=== PATIENT | female | born 1960 | race African-American/Black ===

== ENCOUNTER 2016-03-31 13:13 | Inpatient (IN) | payer MEDICARE, OTHER ==
[~2016-03-31] VITALS: Ht 167.6 cm; Wt 140.7 kg
[~2016-03-31 13:13] MED LIST: DULO60CA44 PO; FERR1GRA MC; GABA-529 PO; LISI-661 PO; MEMA5 PO; METF500T7 PO; MONT10TA21 PO; POTA8TAB4 PO; SIMV-260 PO
[2016-03-31 13:51] LABS: GLUCOSE,POINT OF CARE 131 MG/DL (70-110)
[2016-03-31 14:11] LABS: BASOPHILS % (AUTO) 0.3 % (0.0-2.0); EOSINOPHILS % (AUTO) 1.6 % (1.0-6.0); HEMOGLOBIN 13.5 g/dL (12.0-16.0); LYMPHOCYTES # (AUTO) 2.5 K/uL (1.0-4.8); LYMPHOCYTES % (AUTO) 26.4 % (22.0-44.0); MEAN CORPUSCULAR HEMOGLOBIN 30.6 pg (26.0-34.0); MEAN CORPUSCULAR HGB CONC 32.9 G/dL (31.0-37.0); MEAN CORPUSCULAR VOLUME 93 fL (80-100); MONOCYTES # (AUTO) 0.5 K/uL (0.1-1.0); MONOCYTES % (AUTO) 5.3 % (2.0-9.0); NEUTROPHILS # (AUTO) 6.4 K/uL (1.8-7.7); NEUTROPHILS % (AUTO) 66.4 % (40.0-70.0); PLATELET COUNT (AUTO) 280 K/uL (150-450); RED BLOOD CELL COUNT(AUTO) 4.42 MIL/uL (4.00-5.20); RED CELL DISTRIBUTION WIDTH 14.9 % (11.5-14.5); WHITE BLOOD COUNT (AUTO) 9.6 K/uL (4.5-11.0)
[2016-03-31 14:22] LABS: ANION GAP 12 mmol/L (8-16); CALCIUM, TOTAL 7.9 mg/dL (8.8-10.5); CARBON DIOXIDE 27 mmol/L (22-29); CHLORIDE 104 mmol/L (98-107); CREATININE 2.46 mg/dL (0.60-1.30); GLOMERULAR FILTR. RATE CALC 25 mL/min (>60); POTASSIUM 3.6 mmol/L (3.5-5.1); SODIUM SERUM 143 mmol/L (136-145); UREA NITROGEN, BLOOD 55 mg/dL (7-18)
[2016-03-31] MEDS ORDERED: ASPIRIN 81 MG CHEWABLE TABLET PO ONE (14:30)
[2016-03-31 14:39] LABS: B-TYPE NATRIURETIC PEPTIDE < 5 pg/mL (0-100)
[2016-03-31 14:47] LABS: ALANINE AMINOTRANSFERASE 28 U/L (12-78); ALBUMIN 3.3 g/dL (3.4-5.0); ASPARTATE AMINOTRANSFERASE 28 U/L (15-37); BILIRUBIN,TOTAL 0.2 mg/dL (0.1-1.0); CREATINE KINASE MB 0.9 ng/mL (0-5); CREATINE KINASE, TOTAL 486 U/L (26-192); TOTAL PROTEIN, SERUM 9.1 g/dL (6.4-8.2)
[2016-03-31] MEDS ORDERED: MORPHINE SULFATE 2 MG/ML SYRINGE IVP PRN (16:00)
[2016-03-31] MEDS ORDERED: ZOLPIDEM TARTRATE 5 MG TABLET PO PRN (16:00)
[2016-03-31] MEDS ORDERED: ACETAMINOPHEN 325 MG TABLET PO PRN ×2 (16:00)
[2016-03-31] MEDS ORDERED: ONDANSETRON HCL 4 MG/2 ML VIAL IVP PRN ×2 (16:00)
[2016-03-31] MEDS ORDERED: BISACODYL 10 MG RECTAL RECTAL SUPPOSITORY PR PRN (16:00)
[2016-03-31] MEDS ORDERED: HYDROCODONE/ACETAMINOPHEN 5-325 MG TABLET PO PRN (16:00)
[2016-03-31] MEDS ORDERED: 0.9% SODIUM CHLORIDE 10 ML SYRINGE IVP PRN (16:00)
[2016-03-31] MEDS ORDERED: MAGNESIUM HYDROXIDE SUSPENSION 30 ML UDCUP PO PRN (16:00)
[2016-03-31] MEDS: HEPARIN SODIUM,PORCINE 5,000 UNITS/ML VIAL SQ SCH (16:16)
[2016-03-31] MEDS: GABAPENTIN 100 MG CAPSULE PO SCH ×2 (16:18→20:45)
[2016-03-31 16:26] LABS: GLUCOSE COMMENT 1 Doctor Notified; GLUCOSE,POINT OF CARE 45 MG/DL (70-110)
[2016-03-31 16:41] LABS: GLUCOSE COMMENT 1 Juice/Food/D50 Given; GLUCOSE,POINT OF CARE 50 MG/DL (70-110)
[2016-03-31] MEDS ORDERED: DEXTROSE 50%-WATER 25 GM/50 ML SYRINGE IVP ONE ×2 (16:55→17:00)
[2016-03-31 18:02] VITALS: BP 117/53
[2016-03-31] MEDS: MetFORMIN HCL 500 MG ER TABLET PO SCH (19:07)
[2016-03-31 20:05] VITALS: BP 120/62
[2016-03-31] MEDS: SIMVASTATIN 20 MG TABLET PO SCH (20:45)
[2016-03-31] MEDS: FERROUS SULFATE 325 MG EC TABLET PO SCH (20:45)
[2016-03-31] MEDS: MEMANTINE HCL 5 MG TABLET PO SCH (20:45)
[2016-03-31] MEDS: DOCUSATE SODIUM 100 MG CAPSULE PO SCH (20:45)
[2016-03-31] MEDS ORDERED: INFLUENZA VIRUS VACCINE QVS 2016-17 (3YR+)/PF 60 MCG/0.5 ML SYRINGE IM ONE (22:00)
[2016-03-31] MEDS ORDERED: -PHARMACY VACCINE NOTE- MISC ONE ×2 (22:00)
[2016-04-01] VITALS (7 sets, daily range): BP systolic 94–116; BP diastolic 53–71
[2016-04-01] MEDS: HEPARIN SODIUM,PORCINE 5,000 UNITS/ML VIAL SQ SCH ×4 (00:42→23:47)
[2016-04-01] MEDS: DOCUSATE SODIUM 100 MG CAPSULE PO SCH ×2 (08:00→20:56)
[2016-04-01] MEDS: MetFORMIN HCL 500 MG ER TABLET PO SCH ×2 (08:00→19:49)
[2016-04-01] MEDS: GABAPENTIN 100 MG CAPSULE PO SCH ×3 (08:00→20:55)
[2016-04-01] MEDS: FERROUS SULFATE 325 MG EC TABLET PO SCH ×2 (08:00→20:56)
[2016-04-01] MEDS: DULoxetine HCL 60 MG CAPSULE PO SCH (08:00)
[2016-04-01] MEDS: MONTELUKAST SODIUM 10 MG TABLET PO SCH (08:01)
[2016-04-01] MEDS: PANTOPRAZOLE SODIUM 40 MG DR TABLET PO SCH (08:01)
[2016-04-01] MEDS: MEMANTINE HCL 5 MG TABLET PO SCH ×2 (08:01→20:56)
[2016-04-01] MEDS: LISINOPRIL 10 MG TABLET PO SCH (08:02)
[2016-04-01] MEDS: POTASSIUM CHLORIDE 8 MEQ ER TABLET PO SCH (08:02)
[2016-04-01 16:53] LABS: BASOPHILS % (AUTO) 0.4 % (0.0-2.0); EOSINOPHILS % (AUTO) 2.9 % (1.0-6.0); HEMATOCRIT 41.3 % (36-46); HEMOGLOBIN 13.4 g/dL (12.0-16.0); LYMPHOCYTES # (AUTO) 2.4 K/uL (1.0-4.8); LYMPHOCYTES % (AUTO) 29.3 % (22.0-44.0); MEAN CORPUSCULAR HEMOGLOBIN 30.8 pg (26.0-34.0); MEAN CORPUSCULAR HGB CONC 32.6 G/dL (31.0-37.0); MEAN CORPUSCULAR VOLUME 94 fL (80-100); MONOCYTES # (AUTO) 0.4 K/uL (0.1-1.0); MONOCYTES % (AUTO) 4.5 % (2.0-9.0); NEUTROPHILS # (AUTO) 5.2 K/uL (1.8-7.7); NEUTROPHILS % (AUTO) 62.9 % (40.0-70.0); PLATELET COUNT (AUTO) 281 K/uL (150-450); RED BLOOD CELL COUNT(AUTO) 4.37 MIL/uL (4.00-5.20); RED CELL DISTRIBUTION WIDTH 15.2 % (11.5-14.5); WHITE BLOOD COUNT (AUTO) 8.3 K/uL (4.5-11.0)
[2016-04-01 17:06] LABS: CALCIUM, TOTAL 7.8 mg/dL (8.8-10.5); CREATININE 1.63 mg/dL (0.60-1.30); POTASSIUM 4.4 mmol/L (3.5-5.1)
[2016-04-01 17:08] LABS: ALBUMIN 3.2 g/dL (3.4-5.0); BILIRUBIN,TOTAL 0.3 mg/dL (0.1-1.0)
[2016-04-01 17:17] LABS: RBC MORPHOLOGY COMMENT NORMAL RBC MORPH
[2016-04-01] MEDS: SIMVASTATIN 20 MG TABLET PO SCH (20:56)
[2016-04-02 00:15] VITALS: BP 109/48
[2016-04-02 04:57] VITALS: BP 113/57
[2016-04-02 06:15] LABS: BASOPHILS % (AUTO) 0.5 % (0.0-2.0); EOSINOPHILS % (AUTO) 3.8 % (1.0-6.0); HEMATOCRIT 38.7 % (36-46); HEMOGLOBIN 12.9 g/dL (12.0-16.0); LYMPHOCYTES # (AUTO) 1.9 K/uL (1.0-4.8); LYMPHOCYTES % (AUTO) 34.3 % (22.0-44.0); MEAN CORPUSCULAR HEMOGLOBIN 31.4 pg (26.0-34.0); MEAN CORPUSCULAR HGB CONC 33.2 G/dL (31.0-37.0); MEAN CORPUSCULAR VOLUME 94 fL (80-100); MONOCYTES # (AUTO) 0.3 K/uL (0.1-1.0); MONOCYTES % (AUTO) 5.9 % (2.0-9.0); NEUTROPHILS # (AUTO) 3.1 K/uL (1.8-7.7); NEUTROPHILS % (AUTO) 55.5 % (40.0-70.0); PLATELET COUNT (AUTO) 250 K/uL (150-450); RED CELL DISTRIBUTION WIDTH 14.9 % (11.5-14.5); WHITE BLOOD COUNT (AUTO) 5.5 K/uL (4.5-11.0)
[2016-04-02 06:33] LABS: ALBUMIN 2.8 g/dL (3.4-5.0); BILIRUBIN,TOTAL 0.2 mg/dL (0.1-1.0); CALCIUM, TOTAL 7.7 mg/dL (8.8-10.5); CREATININE 1.53 mg/dL (0.60-1.30); POTASSIUM 3.7 mmol/L (3.5-5.1); TOTAL PROTEIN, SERUM 8.1 g/dL (6.4-8.2)
[2016-04-02 07:23] VITALS: BP 115/58
[2016-04-02] MEDS: MetFORMIN HCL 500 MG ER TABLET PO SCH (08:21)
[2016-04-02] MEDS: HEPARIN SODIUM,PORCINE 5,000 UNITS/ML VIAL SQ SCH (08:21)
[2016-04-02] MEDS: DULoxetine HCL 60 MG CAPSULE PO SCH (08:21)
[2016-04-02] MEDS: MONTELUKAST SODIUM 10 MG TABLET PO SCH (08:21)
[2016-04-02] MEDS: DOCUSATE SODIUM 100 MG CAPSULE PO SCH (08:21)
[2016-04-02] MEDS: FERROUS SULFATE 325 MG EC TABLET PO SCH (08:22)
[2016-04-02] MEDS: POTASSIUM CHLORIDE 8 MEQ ER TABLET PO SCH (08:22)
[2016-04-02] MEDS: MEMANTINE HCL 5 MG TABLET PO SCH (08:22)
[2016-04-02] MEDS: PANTOPRAZOLE SODIUM 40 MG DR TABLET PO SCH (08:22)
[2016-04-02] MEDS: LISINOPRIL 10 MG TABLET PO SCH (08:22)
[2016-04-02] MEDS: GABAPENTIN 100 MG CAPSULE PO SCH (08:22)
[2016-04-02 11:30] VITALS: BP 118/59
== END 2016-04-02 13:10 | disposition home or self-care (01) | DRG 292 ==
LOC: EMS 13:16 → 5N 15:58
PROVIDERS: ADMIT Internal Medicine; ATTEND Internal Medicine
DX: I13.0 Hypertensive heart and chronic kidney disease with heart failure and stage 1 through stage 4 chronic kidney disease, or unspecified chronic kidney disease (principal); N17.9 Acute kidney failure, unspecified; E44.0 Moderate protein-calorie malnutrition; I69.354 Hemiplegia and hemiparesis following cerebral infarction affecting left non-dominant side; Z68.43 Body mass index [BMI] 50.0-59.9, adult; M94.0 Chondrocostal junction syndrome [Tietze]; E11.649 Type 2 diabetes mellitus with hypoglycemia without coma; I50.9 Heart failure, unspecified; E66.01 Morbid (severe) obesity due to excess calories; J45.909 Unspecified asthma, uncomplicated; E86.0 Dehydration; E78.5 Hyperlipidemia, unspecified; R29.6 Repeated falls; N18.9 Chronic kidney disease, unspecified; E11.22 Type 2 diabetes mellitus with diabetic chronic kidney disease; Z79.899 Other long term (current) drug therapy; Z90.710 Acquired absence of both cervix and uterus; Z82.49 Family history of ischemic heart disease and other diseases of the circulatory system
CPT/HCPCS: 74022; 76700; 82962; 90471; 93005; 93306; 96374; 99285; J1644

== ENCOUNTER 2016-04-16 23:28 | Inpatient (IN) | payer MEDICARE, OTHER ==
[~2016-04-16] VITALS: Ht 167.6 cm; Wt 138.8 kg
[2016-04-16] MEDS ORDERED: INSLAN SQ (23:47)
[2016-04-16] MEDS ORDERED: INSU100C6 SQ (23:47)
[2016-04-17] MEDS ORDERED: KETOROLAC TROMETHAMINE 30 MG/ML VIAL IVP ONE (00:15)
[2016-04-17 02:03] LABS: BASOPHILS % (AUTO) 0.3 % (0.0-2.0); EOSINOPHILS % (AUTO) 0.7 % (1.0-6.0); HEMATOCRIT 36.8 % (36-46); LYMPHOCYTES # (AUTO) 2.5 K/uL (1.0-4.8); LYMPHOCYTES % (AUTO) 18.6 % (22.0-44.0); MEAN CORPUSCULAR HEMOGLOBIN 29.9 pg (26.0-34.0); MEAN CORPUSCULAR HGB CONC 32.5 G/dL (31.0-37.0); MEAN CORPUSCULAR VOLUME 92 fL (80-100); MONOCYTES # (AUTO) 0.2 K/uL (0.1-1.0); MONOCYTES % (AUTO) 1.5 % (2.0-9.0); NEUTROPHILS # (AUTO) 10.7 K/uL (1.8-7.7); NEUTROPHILS % (AUTO) 78.9 % (40.0-70.0); PLATELET COUNT (AUTO) 288 K/uL (150-450); RED BLOOD CELL COUNT(AUTO) 3.99 MIL/uL (4.00-5.20); RED CELL DISTRIBUTION WIDTH 14.4 % (11.5-14.5); WHITE BLOOD COUNT (AUTO) 13.5 K/uL (4.5-11.0)
[2016-04-17 02:10] LABS: CALCIUM, TOTAL 8.1 mg/dL (8.8-10.5); CREATININE 1.61 mg/dL (0.60-1.30); POTASSIUM 4.2 mmol/L (3.5-5.1)
[2016-04-17 02:11] LABS: GLUCOSE,POINT OF CARE 52 MG/DL (70-110)
[2016-04-17] MEDS ORDERED: DEXTROSE 10%-WATER 1,000 ML IV ONE (02:15)
[2016-04-17 02:16] LABS: ALBUMIN 3.1 g/dL (3.4-5.0); BILIRUBIN,TOTAL 0.1 mg/dL (0.1-1.0); TOTAL PROTEIN, SERUM 8.8 g/dL (6.4-8.2)
[2016-04-17] MEDS ORDERED: ACETAMINOPHEN 325 MG TABLET PO PRN ×2 (03:00→17:00)
[2016-04-17] MEDS ORDERED: 0.9% SODIUM CHLORIDE 10 ML SYRINGE IVP PRN (03:00)
[2016-04-17] MEDS ORDERED: ONDANSETRON HCL 4 MG/2 ML VIAL IVP PRN ×2 (03:00→17:00)
[2016-04-17 03:29] VITALS: BP 132/64
[2016-04-17 07:04] VITALS: BP 130/69
[2016-04-17 11:25] VITALS: BP 112/49
[2016-04-17 15:17] VITALS: BP 105/47
[2016-04-17] MEDS ORDERED: MAGNESIUM HYDROXIDE SUSPENSION 30 ML UDCUP PO PRN (17:00)
[2016-04-17] MEDS ORDERED: IPRATROPIUM BROMIDE 0.5 MG/2.5 ML NEB SOLUTION NEB PRN (17:00)
[2016-04-17] MEDS ORDERED: ALBUTEROL SULFATE 2.5 MG/0.5 ML NEB SOLUTION NEB PRN (17:00)
[2016-04-17] MEDS ORDERED: ZOLPIDEM TARTRATE 5 MG TABLET PO PRN (17:00)
[2016-04-17] MEDS ORDERED: BISACODYL 10 MG RECTAL RECTAL SUPPOSITORY PR PRN (17:00)
[2016-04-17] MEDS ORDERED: DEXTROSE 50%-WATER 25 GM/50 ML SYRINGE IVP PRN (17:00)
[2016-04-17] MEDS ORDERED: FERR-89 PO (17:04)
[2016-04-17] MEDS: MetFORMIN HCL 500 MG ER TABLET PO SCH (17:39)
[2016-04-17] MEDS: INSULIN ASPART 100 UNITS/ML SQ PRN ×2 (17:41→22:01)
[2016-04-17 19:26] VITALS: BP 118/63
[2016-04-17] MEDS: MEMANTINE HCL 5 MG TABLET PO SCH (20:19)
[2016-04-17] MEDS: HEPARIN SODIUM,PORCINE 5,000 UNITS/ML VIAL SQ SCH (20:20)
[2016-04-17] MEDS: GABAPENTIN 100 MG CAPSULE PO SCH (20:20)
[2016-04-17 20:43] LABS: GLUCOSE,POINT OF CARE 175 MG/DL (70-110)
[2016-04-17 20:43] LABS: GLUCOSE,POINT OF CARE 59 MG/DL (70-110)
[2016-04-17 20:43] LABS: GLUCOSE,POINT OF CARE 202 MG/DL (70-110)
[2016-04-17 20:43] LABS: GLUCOSE,POINT OF CARE 139 MG/DL (70-110)
[2016-04-17] MEDS: OxyCODONE HCL/ACETAMINOPHEN 5-325 MG TABLET PO PRN (20:46)
[2016-04-17] MEDS ORDERED: SIMVASTATIN 20 MG TABLET PO SCH (21:00)
[2016-04-17 23:38] VITALS: BP 107/55
[2016-04-18 04:38] VITALS: BP 116/63
[2016-04-18 06:15] LABS: BASOPHILS # (AUTO) 0.04 K/uL (0.00-0.20); BASOPHILS % (AUTO) 0.6 % (0.0-2.0); EOSINOPHILS % (AUTO) 3.41 % (1.0-6.0); HEMATOCRIT 35.7 % (36-46); HEMOGLOBIN 11.8 g/dL (12.0-16.0); LYMPHOCYTES # (AUTO) 3.5 K/uL (1.0-4.8); LYMPHOCYTES % (AUTO) 58.6 % (22.0-44.0); MEAN CORPUSCULAR HEMOGLOBIN 30.6 pg (26.0-34.0); MEAN CORPUSCULAR VOLUME 93 fL (80-100); MONOCYTES # (AUTO) 0.3 K/uL (0.1-1.0); MONOCYTES % (AUTO) 5.4 % (2.0-9.0); NEUTROPHILS # (AUTO) 1.9 K/uL (1.8-7.7); NEUTROPHILS % (AUTO) 31.9 % (40.0-70.0); PLATELET COUNT (AUTO) 277 K/uL (150-450); RED BLOOD CELL COUNT(AUTO) 3.85 MIL/uL (4.00-5.20); RED CELL DISTRIBUTION WIDTH 14.7 % (11.5-14.5)
[2016-04-18 06:33] LABS: APPEARANCE,URINE CLEAR (CLEAR); GLUCOSE, URINE (UA) NEGATIVE (NEGATIVE); KETONES,URINE NEGATIVE (NEGATIVE); LEUKOCYTE ESTERASE ,URINE NEGATIVE (NEGATIVE); OCCULT BLOOD,URINE NEGATIVE (NEGATIVE); PH,URINE 5.5 (5.0-8.0); PROTEIN,URINE NEGATIVE (NEGATIVE)
[2016-04-18 06:39] LABS: ADD UA MICROSCOPIC NO
[2016-04-18 06:50] LABS: ALBUMIN 2.8 g/dL (3.4-5.0); BILIRUBIN,TOTAL 0.3 mg/dL (0.1-1.0); CALCIUM, TOTAL 7.7 mg/dL (8.8-10.5); CHOL/HDL RATIO 2.5 (3.9-5.7); CREATININE 1.18 mg/dL (0.60-1.30); MAGNESIUM 1.2 mg/dL (1.80-2.40); PHOSPHORUS 2.7 mg/dL (2.5-4.9); POTASSIUM 3.9 mmol/L (3.5-5.1); THYROID STIMULATING HORMONE 2.95 uIU/mL (0.36-3.74); TOTAL PROTEIN, SERUM 7.7 g/dL (6.4-8.2)
[2016-04-18 07:07] LABS: HEMOGLOBIN A1C 8.3 % (4.5-6.2)
[2016-04-18 07:22] VITALS: BP 121/64
[2016-04-18] MEDS: GABAPENTIN 100 MG CAPSULE PO SCH (08:14)
[2016-04-18] MEDS: MEMANTINE HCL 5 MG TABLET PO SCH (08:14)
[2016-04-18] MEDS: MetFORMIN HCL 500 MG ER TABLET PO SCH (08:14)
[2016-04-18] MEDS: HEPARIN SODIUM,PORCINE 5,000 UNITS/ML VIAL SQ SCH (08:17)
[2016-04-18] MEDS: OxyCODONE HCL/ACETAMINOPHEN 5-325 MG TABLET PO PRN (08:18)
[2016-04-18] MEDS ORDERED: MONTELUKAST SODIUM 10 MG TABLET PO SCH (09:00)
[2016-04-18] MEDS ORDERED: MAGNESIUM SULFATE 2 GM in DEXTROSE 5%-WATER 50 ML IV ONE (09:00)
[2016-04-18] MEDS ORDERED: DULoxetine HCL 60 MG CAPSULE PO SCH (09:00)
[2016-04-18] MEDS ORDERED: LISINOPRIL 10 MG TABLET PO SCH (09:00)
[2016-04-18 11:37] VITALS: BP 98/55
[2016-04-18] MEDS: INSULIN ASPART 100 UNITS/ML SQ PRN (12:03)
[2016-04-19 06:57] LABS: GLUCOSE,POINT OF CARE 133 MG/DL (70-110)
[2016-04-19 06:57] LABS: GLUCOSE,POINT OF CARE 83 MG/DL (70-110)
[2016-04-20 20:01] LABS: GLUCOSE COMMENT 1 Received Meds; GLUCOSE,POINT OF CARE 202 MG/DL (70-110)
== END 2016-04-18 13:40 | disposition home or self-care (01) | DRG 292 ==
LOC: EMS 23:29 → 5N 04-17 02:12
PROVIDERS: ADMIT Internal Medicine; ATTEND Internal Medicine
DX: I11.0 Hypertensive heart disease with heart failure (principal); N17.9 Acute kidney failure, unspecified; Z68.42 Body mass index [BMI] 45.0-49.9, adult; E87.1 Hypo-osmolality and hyponatremia; I50.9 Heart failure, unspecified; E09.649 Drug or chemical induced diabetes mellitus with hypoglycemia without coma; E11.40 Type 2 diabetes mellitus with diabetic neuropathy, unspecified; J45.909 Unspecified asthma, uncomplicated; R29.6 Repeated falls; F03.90 Unspecified dementia, unspecified severity, without behavioral disturbance, psychotic disturbance, mood disturbance, and anxiety; E66.01 Morbid (severe) obesity due to excess calories; I69.392 Facial weakness following cerebral infarction; E83.51 Hypocalcemia; T38.3X5A Adverse effect of insulin and oral hypoglycemic [antidiabetic] drugs, initial encounter; Z79.899 Other long term (current) drug therapy; Z79.4 Long term (current) use of insulin; Z90.710 Acquired absence of both cervix and uterus; Z98.890 Other specified postprocedural states; Z87.820 Personal history of traumatic brain injury; Y93.89 Activity, other specified; Y92.018 Other place in single-family (private) house as the place of occurrence of the external cause; Y99.8 Other external cause status
CPT/HCPCS: 70450; 82306; 82962; 83036; 83735; 84100; 84443; 87081; 96361; 96374; 99285; J1644; J1885; J3475; J7060

== ENCOUNTER 2016-09-22 08:31 | Inpatient (IN) | payer MEDICARE, OTHER ==
[~2016-09-22] VITALS: Ht 172.7 cm; Wt 147.7 kg
[~2016-09-22 08:31] MED LIST changes: +FERR-89 PO; -FERR1GRA MC; +INSLAN SQ; +INSU100C6 SQ
[2016-09-22 09:01] LABS: BASOPHILS % (AUTO) 0.5 % (0.0-2.0); EOSINOPHILS % (AUTO) 2.2 % (1.0-6.0); HEMATOCRIT 36.8 % (36-46); HEMOGLOBIN 12.3 g/dL (12.0-16.0); LYMPHOCYTES # (AUTO) 1.2 K/uL (1.0-4.8); LYMPHOCYTES % (AUTO) 30.2 % (22.0-44.0); MEAN CORPUSCULAR HEMOGLOBIN 31.1 pg (26.0-34.0); MEAN CORPUSCULAR HGB CONC 33.4 G/dL (31.0-37.0); MEAN CORPUSCULAR VOLUME 93 fL (80-100); MONOCYTES # (AUTO) 0.3 K/uL (0.1-1.0); MONOCYTES % (AUTO) 6.3 % (2.0-9.0); NEUTROPHILS # (AUTO) 2.5 K/uL (1.8-7.7); NEUTROPHILS % (AUTO) 60.8 % (40.0-70.0); PLATELET COUNT (AUTO) 332 K/uL (150-450); RED BLOOD CELL COUNT(AUTO) 3.96 MIL/uL (4.00-5.20); RED CELL DISTRIBUTION WIDTH 14.7 % (11.5-14.5); WHITE BLOOD COUNT (AUTO) 4.1 K/uL (4.5-11.0)
[2016-09-22 09:12] LABS: CALCIUM, TOTAL 8.9 mg/dL (8.8-10.5); CREATININE 1.22 mg/dL (0.60-1.30); POTASSIUM 3.1 mmol/L (3.5-5.1)
[2016-09-22 09:20] LABS: ALBUMIN 2.9 g/dL (3.4-5.0); BILIRUBIN,TOTAL 0.2 mg/dL (0.1-1.0); TOTAL PROTEIN, SERUM 8.7 g/dL (6.4-8.2)
[2016-09-22 10:37] LABS: GLUCOSE,POINT OF CARE 109 MG/DL (70-110)
[2016-09-22] MEDS ORDERED: DEXTROSE 50%-WATER 25 GM/50 ML SYRINGE IVP PRN (12:00)
[2016-09-22] MEDS ORDERED: MAGNESIUM HYDROXIDE SUSPENSION 30 ML UDCUP PO PRN (12:00)
[2016-09-22] MEDS ORDERED: ACETAMINOPHEN 325 MG TABLET PO PRN (12:00)
[2016-09-22] MEDS: ASPIRIN 81 MG CHEWABLE TABLET PO SCH (12:02)
[2016-09-22 12:30] VITALS: BP 104/47
[2016-09-22] MEDS: HEPARIN SODIUM,PORCINE 5,000 UNITS/ML VIAL SQ SCH ×2 (16:17→23:51)
[2016-09-22] MEDS ORDERED: POTASSIUM CHLORIDE 20 MEQ ER TABLET PO PRN (16:30)
[2016-09-22] MEDS ORDERED: POTASSIUM CHL 10 MEQ/WATER 50 ML IV PRN (16:30)
[2016-09-22 17:00] VITALS: BP 104/47
[2016-09-22 18:12] LABS: GLUCOSE,POINT OF CARE 104 MG/DL (70-110)
[2016-09-22 20:00] VITALS: BP 99/62
[2016-09-22 20:52] LABS: GLUCOSE,POINT OF CARE 72 MG/DL (70-110)
[2016-09-22] MEDS ORDERED: SIMVASTATIN 20 MG TABLET PO SCH (21:00)
[2016-09-22] MEDS: DOCUSATE SODIUM 100 MG CAPSULE PO SCH (21:27)
[2016-09-22 21:38] LABS: GLUCOSE,POINT OF CARE 120 MG/DL (70-110)
[2016-09-22 23:55] VITALS: BP 98/45
[2016-09-23 04:20] VITALS: BP 106/68
[2016-09-23 06:37] LABS: GLUCOSE,POINT OF CARE 158 MG/DL (70-110)
[2016-09-23] MEDS: INSULIN ASPART 100 UNITS/ML SQ PRN ×2 (06:39→12:05)
[2016-09-23 07:08] LABS: CHOL/HDL RATIO 3.4 (3.9-5.7)
[2016-09-23 07:40] VITALS: BP 96/52
[2016-09-23] MEDS: DOCUSATE SODIUM 100 MG CAPSULE PO SCH (08:44)
[2016-09-23] MEDS: ASPIRIN 81 MG CHEWABLE TABLET PO SCH (08:44)
[2016-09-23] MEDS: HEPARIN SODIUM,PORCINE 5,000 UNITS/ML VIAL SQ SCH (08:45)
[2016-09-23] MEDS ORDERED: PANTOPRAZOLE SODIUM 40 MG DR TABLET PO SCH (09:00)
[2016-09-23 11:30] VITALS: BP 102/72
[2016-09-23 14:27] LABS: GLUCOSE,POINT OF CARE 177 MG/DL (70-110)
== END 2016-09-23 14:00 | disposition home or self-care (01) | DRG 644 ==
LOC: EMS 08:33 → 4E 11:44
PROVIDERS: ADMIT Internal Medicine; ATTEND Internal Medicine
DX: E16.0 Drug-induced hypoglycemia without coma (principal); Z68.42 Body mass index [BMI] 45.0-49.9, adult; E66.01 Morbid (severe) obesity due to excess calories; E78.00 Pure hypercholesterolemia, unspecified; I11.0 Hypertensive heart disease with heart failure; I50.9 Heart failure, unspecified; J45.909 Unspecified asthma, uncomplicated; T38.3X5A Adverse effect of insulin and oral hypoglycemic [antidiabetic] drugs, initial encounter; Z79.4 Long term (current) use of insulin; Z86.73 Personal history of transient ischemic attack (TIA), and cerebral infarction without residual deficits; R29.6 Repeated falls; Z90.710 Acquired absence of both cervix and uterus
CPT/HCPCS: 82962; 83036; 84132; 99285; J1644

== ENCOUNTER 2018-06-27 15:35 | Inpatient (IN) | payer MEDICARE, OTHER ==
[~2018-06-27] VITALS: Ht 167.6 cm; Wt 125.8 kg
[~2018-06-27 15:35] MED LIST changes: +DULO20CA30 PO; -DULO60CA44 PO; -INSLAN SQ; +INSNOV SQ; -INSU100C6 SQ; +INSU100I26 SQ; -LISI-661 PO; -METF500T7 PO; +MULT-1203 PO; -POTA8TAB4 PO; +SLOWK8 PO
[2018-06-27] MEDS ORDERED: BISA5TAB12 PO (15:49)
[2018-06-27] MEDS ORDERED: FURO40 PO (15:49)
[2018-06-27 15:59] LABS: GLUCOSE,POINT OF CARE 408 MG/DL (70-110)
[2018-06-27 16:22] LABS: BASOPHILS % (AUTO) 0.6 % (0.0-2.0); EOSINOPHILS % (AUTO) 0.3 % (1.0-6.0); HEMATOCRIT 41.6 % (36-46); HEMOGLOBIN 13.7 g/dL (12.0-16.0); LYMPHOCYTES # (AUTO) 1.4 K/uL (1.0-4.8); LYMPHOCYTES % (AUTO) 12.3 % (22.0-44.0); MEAN CORPUSCULAR HEMOGLOBIN 31.2 pg (26.0-34.0); MEAN CORPUSCULAR VOLUME 95 fL (80-100); MONOCYTES # (AUTO) 0.7 K/uL (0.1-1.0); MONOCYTES % (AUTO) 5.7 % (2.0-9.0); NEUTROPHILS # (AUTO) 9.4 K/uL (1.8-7.7); NEUTROPHILS % (AUTO) 81.1 % (40.0-70.0); PLATELET COUNT (AUTO) 235 K/uL (150-450); RED CELL DISTRIBUTION WIDTH 14.9 % (11.5-14.5)
[2018-06-27 16:35] LABS: CALCIUM, TOTAL 9.1 mg/dL (8.8-10.5); CREATININE 2.34 mg/dL (0.60-1.30); POTASSIUM 3.3 mmol/L (3.5-5.1)
[2018-06-27 16:39] LABS: PROTHROMBIN TIME 10.8 SEC (9.4-11.6)
[2018-06-27 16:59] LABS: ALBUMIN 2.7 g/dL (3.4-5.0); BILIRUBIN,TOTAL 0.7 mg/dL (0.1-1.0); TOTAL PROTEIN, SERUM 9.9 g/dL (6.4-8.2)
[2018-06-27] MEDS ORDERED: SODIUM CHLORIDE 0.9% 1,000 ML IV ONE (17:15)
[2018-06-27 17:59] LABS: GLUCOSE,POINT OF CARE 351 MG/DL (70-110)
[2018-06-27 18:08] LABS: APPEARANCE,URINE TURBID (CLEAR); GLUCOSE, URINE (UA) 100 mg/dL (NEGATIVE); KETONES,URINE NEGATIVE (NEGATIVE); LEUKOCYTE ESTERASE ,URINE LARGE (NEGATIVE); NITRATE,URINE POSITIVE (NEGATIVE); OCCULT BLOOD,URINE LARGE (NEGATIVE); PH,URINE 5.5 (5.0-8.0); PROTEIN,URINE SEE CONFIRM (NEGATIVE)
[2018-06-27 18:10] LABS: BILIRUBIN,URINE PRELIM. POSITIVE (NEGATIVE)
[2018-06-27] MEDS ORDERED: ASPIRIN 325 MG TABLET PO ONE (18:15)
[2018-06-27] MEDS ORDERED: NITROGLYCERIN 2% (1 GM=INCH) PACKET TP ONE (18:15)
[2018-06-27] MEDS ORDERED: CefTRIAXone 1 GM/DEXTROSE 50 ML IV ONE (18:15)
[2018-06-27] MEDS ORDERED: ONDANSETRON HCL 4 MG/2 ML VIAL IVP PRN ×2 (18:30→22:15)
[2018-06-27] MEDS ORDERED: 0.9% SODIUM CHLORIDE 10 ML SYRINGE IVP PRN (18:30)
[2018-06-27] MEDS ORDERED: ACETAMINOPHEN 325 MG TABLET PO PRN (18:30)
[2018-06-27 18:31] LABS: SULFOSALICYLIC ACID,URINE 4+ (Negative)
[2018-06-27 18:32] LABS: BACTERIA,URINE Many /HPF (None Seen); SQUAMOUS EPITHELIAL CELL,UR Moderate /LPF (None Seen); WBC,URINE >100 /HPF (0-5)
[2018-06-27 18:39] LABS: GLUCOSE,POINT OF CARE 329 MG/DL (70-110)
[2018-06-27 20:24] VITALS: BP 117/67
[2018-06-27] MEDS ORDERED: DEXTROSE 50%-WATER 25 GM/50 ML SYG IVP PRN (22:15)
[2018-06-27] MEDS ORDERED: GLUCAGON,HUMAN RECOMBINANT 1 MG VIAL IM PRN (22:15)
[2018-06-27] MEDS ORDERED: INSULIN LISPRO 100 UNITS/ML SQ PRN ×2 (22:15)
[2018-06-27] MEDS ORDERED: ZOLPIDEM TARTRATE 5 MG TABLET PO PRN (22:15)
[2018-06-27] MEDS ORDERED: ALBUTEROL SULFATE 2.5 MG/0.5 ML NEB SOLUTION NEB PRN (22:15)
[2018-06-27] MEDS ORDERED: IPRATROPIUM BROMIDE 0.5 MG/2.5 ML NEB SOLUTION NEB PRN (22:15)
[2018-06-27] MEDS: FUROSEMIDE 40 MG TABLET PO SCH (22:33)
[2018-06-27] MEDS: DOCUSATE SODIUM 100 MG CAPSULE PO SCH (22:33)
[2018-06-27] MEDS: SIMVASTATIN 20 MG TABLET PO SCH (22:33)
[2018-06-27] MEDS: INSULIN LISPRO 100 UNITS/ML SQ PRN (22:42)
[2018-06-27] MEDS: MEMANTINE HCL 5 MG TABLET PO SCH (23:24)
[2018-06-27 23:53] VITALS: BP 121/62
[2018-06-27] MEDS: ACETAMINOPHEN 325 MG TABLET PO PRN (23:55)
[2018-06-28] MEDS: ALBUTEROL SULFATE 2.5 MG/0.5 ML NEB SOLUTION NEB SCH ×4 (01:15→20:34)
[2018-06-28] MEDS: IPRATROPIUM BROMIDE 0.5 MG/2.5 ML NEB SOLUTION NEB SCH ×4 (01:15→20:33)
[2018-06-28 04:42] VITALS: BP 102/51
[2018-06-28] MEDS: ACETAMINOPHEN 325 MG TABLET PO PRN ×2 (05:46→21:06)
[2018-06-28 06:06] LABS: BASOPHILS % (AUTO) 0.3 % (0.0-2.0); EOSINOPHILS % (AUTO) 0.5 % (1.0-6.0); HEMATOCRIT 37.1 % (36-46); HEMOGLOBIN 12.2 g/dL (12.0-16.0); LYMPHOCYTES # (AUTO) 1.2 K/uL (1.0-4.8); LYMPHOCYTES % (AUTO) 9.1 % (22.0-44.0); MEAN CORPUSCULAR HGB CONC 32.9 G/dL (31.0-37.0); MEAN CORPUSCULAR VOLUME 94 fL (80-100); MONOCYTES # (AUTO) 1.2 K/uL (0.1-1.0); MONOCYTES % (AUTO) 8.7 % (2.0-9.0); NEUTROPHILS # (AUTO) 10.8 K/uL (1.8-7.7); NEUTROPHILS % (AUTO) 81.4 % (40.0-70.0); PLATELET COUNT (AUTO) 207 K/uL (150-450); RED BLOOD CELL COUNT(AUTO) 3.94 MIL/uL (4.00-5.20); RED CELL DISTRIBUTION WIDTH 14.6 % (11.5-14.5)
[2018-06-28] MEDS: INSULIN LISPRO 100 UNITS/ML SQ PRN ×3 (06:17→21:56)
[2018-06-28] MEDS: INSULIN GLARGINE,HUM.REC.ANLOG 100 UNITS/ML SQ SCH ×2 (06:17→17:41)
[2018-06-28 06:25] LABS: ALBUMIN 2.4 g/dL (3.4-5.0); BILIRUBIN,TOTAL 0.7 mg/dL (0.1-1.0); CALCIUM, TOTAL 8.6 mg/dL (8.8-10.5); CREATININE 2.19 mg/dL (0.60-1.30); MAGNESIUM 1.4 mg/dL (1.80-2.40); TOTAL PROTEIN, SERUM 9.1 g/dL (6.4-8.2)
[2018-06-28 06:36] LABS: POTASSIUM 2.9 mmol/L (3.5-5.1)
[2018-06-28 07:19] VITALS: BP 98/56
[2018-06-28] MEDS ORDERED: ENOXAPARIN SODIUM 30 MG/0.3 ML PF SYRINGE SQ SCH (09:00)
[2018-06-28] MEDS: DOCUSATE SODIUM 100 MG CAPSULE PO SCH ×2 (09:10→21:00)
[2018-06-28] MEDS: FUROSEMIDE 40 MG TABLET PO SCH ×2 (09:11→21:05)
[2018-06-28] MEDS: GABAPENTIN 100 MG CAPSULE PO SCH (09:11)
[2018-06-28] MEDS: DULoxetine HCL 20 MG CAPSULE PO SCH (09:11)
[2018-06-28] MEDS: MEMANTINE HCL 5 MG TABLET PO SCH ×2 (09:11→21:06)
[2018-06-28] MEDS: PANTOPRAZOLE SODIUM 40 MG DR TABLET PO SCH (09:11)
[2018-06-28] MEDS: MONTELUKAST SODIUM 10 MG TABLET PO SCH (09:11)
[2018-06-28] MEDS: POTASSIUM CHL 10 MEQ/WATER 50 ML IV PRN ×3 (10:03→12:53)
[2018-06-28 11:12] VITALS: BP 117/58
[2018-06-28] MEDS ORDERED: MAGNESIUM OXIDE 400 MG TABLET PO ONE (11:30)
[2018-06-28] MEDS ORDERED: POTASSIUM CHLORIDE 20 MEQ ER TABLET PO ONE (11:30)
[2018-06-28] MEDS ORDERED: INSULIN LISPRO 100 UNITS/ML SQ ONE (11:45)
[2018-06-28] MEDS ORDERED: DEXTROSE 50%-WATER 25 GM/50 ML SYRINGE IVP PRN (11:45)
[2018-06-28 14:59] VITALS: BP 102/60
[2018-06-28] MEDS: HEPARIN SODIUM,PORCINE 5,000 UNITS/ML VIAL SQ SCH (15:41)
[2018-06-28] MEDS ORDERED: MAGNESIUM SULFATE 1 GM in DEXTROSE 5%-WATER 50 ML IV ONE (16:15)
[2018-06-28] MEDS: CefTRIAXone 1 GM/DEXTROSE 50 ML IV SCH (18:01)
[2018-06-28 20:28] LABS: GLUCOMETER DEV NAME(LOC) 5S.2; GLUCOSE,POINT OF CARE 309 MG/DL (70-110)
[2018-06-28 20:30] VITALS: BP 117/68
[2018-06-28] MEDS: SIMVASTATIN 20 MG TABLET PO SCH (21:06)
[2018-06-29 00:08] VITALS: BP 97/52
[2018-06-29] MEDS: HEPARIN SODIUM,PORCINE 5,000 UNITS/ML VIAL SQ SCH ×3 (00:54→16:34)
[2018-06-29] MEDS: POTASSIUM CHL 10 MEQ/WATER 50 ML IV PRN ×2 (01:33→06:49)
[2018-06-29] MEDS: ALBUTEROL SULFATE 2.5 MG/0.5 ML NEB SOLUTION NEB SCH ×4 (02:00→20:31)
[2018-06-29] MEDS: IPRATROPIUM BROMIDE 0.5 MG/2.5 ML NEB SOLUTION NEB SCH ×4 (02:00→20:31)
[2018-06-29] MEDS ORDERED: SODIUM CHLORIDE 0.9% 250 ML IV ONE (02:05)
[2018-06-29 05:00] LABS: GLUCOMETER DEV NAME(LOC) 5N.1; GLUCOSE,POINT OF CARE 322 MG/DL (70-110)
[2018-06-29 05:01] LABS: GLUCOMETER DEV NAME(LOC) 5N.1; GLUCOSE,POINT OF CARE 464 MG/DL (70-110)
[2018-06-29 05:01] LABS: GLUCOMETER DEV NAME(LOC) 5N.1; GLUCOSE,POINT OF CARE 372 MG/DL (70-110)
[2018-06-29 05:01] LABS: GLUCOMETER DEV NAME(LOC) 5N.1; GLUCOSE,POINT OF CARE 436 MG/DL (70-110)
[2018-06-29 05:17] VITALS: BP 99/61
[2018-06-29 06:17] LABS: BASOPHILS % (AUTO) 0.7 % (0.0-2.0); EOSINOPHILS % (AUTO) 2.4 % (1.0-6.0); HEMATOCRIT 36.1 % (36-46); LYMPHOCYTES # (AUTO) 1.6 K/uL (1.0-4.8); LYMPHOCYTES % (AUTO) 15.2 % (22.0-44.0); MEAN CORPUSCULAR HEMOGLOBIN 31.5 pg (26.0-34.0); MEAN CORPUSCULAR HGB CONC 33.3 G/dL (31.0-37.0); MEAN CORPUSCULAR VOLUME 95 fL (80-100); MONOCYTES # (AUTO) 1.1 K/uL (0.1-1.0); NEUTROPHILS # (AUTO) 7.6 K/uL (1.8-7.7); NEUTROPHILS % (AUTO) 71.7 % (40.0-70.0); PLATELET COUNT (AUTO) 201 K/uL (150-450); RED BLOOD CELL COUNT(AUTO) 3.82 MIL/uL (4.00-5.20); RED CELL DISTRIBUTION WIDTH 14.7 % (11.5-14.5)
[2018-06-29 06:31] LABS: CALCIUM, TOTAL 8.6 mg/dL (8.8-10.5); CREATININE 2.06 mg/dL (0.60-1.30); MAGNESIUM 1.5 mg/dL (1.80-2.40); PHOSPHORUS 2.9 mg/dL (2.5-4.9)
[2018-06-29] MEDS: INSULIN LISPRO 100 UNITS/ML SQ PRN ×4 (06:41→20:45)
[2018-06-29] MEDS: INSULIN GLARGINE,HUM.REC.ANLOG 100 UNITS/ML SQ SCH ×2 (06:42→17:54)
[2018-06-29 06:43] LABS: POTASSIUM 2.9 mmol/L (3.5-5.1)
[2018-06-29 06:51] LABS: CREATININE,URINE RANDOM 40.9 mg/dL (30.0-125.0)
[2018-06-29 07:11] VITALS: BP 98/54
[2018-06-29] MEDS ORDERED: POTASSIUM CHLORIDE 20 MEQ ER TABLET PO ONE (07:15)
[2018-06-29] MEDS ORDERED: MAGNESIUM SULFATE 2 GM in DEXTROSE 5%-WATER 50 ML IV ONE (08:15)
[2018-06-29] MEDS: MONTELUKAST SODIUM 10 MG TABLET PO SCH (08:55)
[2018-06-29] MEDS: DULoxetine HCL 20 MG CAPSULE PO SCH (08:55)
[2018-06-29] MEDS: ACETAMINOPHEN 325 MG TABLET PO PRN (08:55)
[2018-06-29] MEDS: GABAPENTIN 100 MG CAPSULE PO SCH (08:55)
[2018-06-29] MEDS: DOCUSATE SODIUM 100 MG CAPSULE PO SCH ×2 (08:55→20:33)
[2018-06-29] MEDS: MEMANTINE HCL 5 MG TABLET PO SCH ×2 (08:55→20:33)
[2018-06-29] MEDS: PANTOPRAZOLE SODIUM 40 MG DR TABLET PO SCH (08:55)
[2018-06-29 11:32] VITALS: BP_SYST 102; BP_SYST 58; BP_DIAS 58
[2018-06-29 14:05] LABS: GLUCOMETER DEV NAME(LOC) 5N.1; GLUCOSE,POINT OF CARE 228 MG/DL (70-110)
[2018-06-29 14:05] LABS: GLUCOMETER DEV NAME(LOC) 5S.2; GLUCOSE,POINT OF CARE 278 MG/DL (70-110)
[2018-06-29 14:53] LABS: CALCIUM, TOTAL 8.3 mg/dL (8.8-10.5); CREATININE 2.17 mg/dL (0.60-1.30); MAGNESIUM 2.2 mg/dL (1.80-2.40); PHOSPHORUS 2.6 mg/dL (2.5-4.9); POTASSIUM 3.3 mmol/L (3.5-5.1)
[2018-06-29 15:33] VITALS: BP 119/70
[2018-06-29] MEDS: CefTRIAXone 1 GM/DEXTROSE 50 ML IV SCH (17:54)
[2018-06-29 18:35] LABS: GLUCOMETER DEV NAME(LOC) 5S.2; GLUCOSE,POINT OF CARE 369 MG/DL (70-110)
[2018-06-29 19:23] VITALS: BP 106/58
[2018-06-29] MEDS: POTASSIUM CHLORIDE 20 MEQ ER TABLET PO PRN (19:24)
[2018-06-29] MEDS: SIMVASTATIN 20 MG TABLET PO SCH (20:33)
[2018-06-29 23:59] LABS: GLUCOMETER DEV NAME(LOC) 5S.2; GLUCOSE,POINT OF CARE 396 MG/DL (70-110)
[2018-06-30 00:13] VITALS: BP_SYST 112; BP_DIAS 112; BP_DIAS 58
[2018-06-30] MEDS: HEPARIN SODIUM,PORCINE 5,000 UNITS/ML VIAL SQ SCH ×3 (00:35→15:35)
[2018-06-30] MEDS: POTASSIUM CHLORIDE 20 MEQ ER TABLET PO PRN ×2 (00:36→08:23)
[2018-06-30] MEDS: IPRATROPIUM BROMIDE 0.5 MG/2.5 ML NEB SOLUTION NEB SCH ×4 (01:42→20:00)
[2018-06-30] MEDS: ALBUTEROL SULFATE 2.5 MG/0.5 ML NEB SOLUTION NEB SCH ×4 (01:42→20:00)
[2018-06-30 04:07] VITALS: BP 106/54
[2018-06-30 05:58] LABS: BASOPHILS % (AUTO) 0.5 % (0.0-2.0); EOSINOPHILS % (AUTO) 2.6 % (1.0-6.0); HEMATOCRIT 35.5 % (36-46); HEMOGLOBIN 11.7 g/dL (12.0-16.0); LYMPHOCYTES # (AUTO) 1.7 K/uL (1.0-4.8); LYMPHOCYTES % (AUTO) 20.9 % (22.0-44.0); MEAN CORPUSCULAR HEMOGLOBIN 31.1 pg (26.0-34.0); MEAN CORPUSCULAR HGB CONC 32.9 G/dL (31.0-37.0); MEAN CORPUSCULAR VOLUME 95 fL (80-100); MONOCYTES % (AUTO) 11.7 % (2.0-9.0); NEUTROPHILS # (AUTO) 5.4 K/uL (1.8-7.7); NEUTROPHILS % (AUTO) 64.3 % (40.0-70.0); PLATELET COUNT (AUTO) 219 K/uL (150-450); RED BLOOD CELL COUNT(AUTO) 3.75 MIL/uL (4.00-5.20); RED CELL DISTRIBUTION WIDTH 14.7 % (11.5-14.5)
[2018-06-30 06:29] LABS: CALCIUM, TOTAL 8.6 mg/dL (8.8-10.5); CREATININE 2.01 mg/dL (0.60-1.30); MAGNESIUM 2.3 mg/dL (1.80-2.40); PHOSPHORUS 2.8 mg/dL (2.5-4.9); POTASSIUM 3.3 mmol/L (3.5-5.1)
[2018-06-30] MEDS: INSULIN GLARGINE,HUM.REC.ANLOG 100 UNITS/ML SQ SCH ×2 (06:42→17:30)
[2018-06-30] MEDS: INSULIN LISPRO 100 UNITS/ML SQ PRN ×3 (06:43→17:29)
[2018-06-30 07:24] VITALS: BP 107/57
[2018-06-30] MEDS: GABAPENTIN 100 MG CAPSULE PO SCH (08:23)
[2018-06-30] MEDS: MEMANTINE HCL 5 MG TABLET PO SCH ×2 (08:23→20:00)
[2018-06-30] MEDS: MONTELUKAST SODIUM 10 MG TABLET PO SCH (08:23)
[2018-06-30] MEDS: DOCUSATE SODIUM 100 MG CAPSULE PO SCH ×2 (08:23→19:59)
[2018-06-30] MEDS: DULoxetine HCL 20 MG CAPSULE PO SCH (08:23)
[2018-06-30] MEDS: PANTOPRAZOLE SODIUM 40 MG DR TABLET PO SCH (08:23)
[2018-06-30 11:10] VITALS: BP 107/57
[2018-06-30 12:45] LABS: GLUCOMETER DEV NAME(LOC) 5S.2; GLUCOSE,POINT OF CARE 334 MG/DL (70-110)
[2018-06-30 12:45] LABS: GLUCOMETER DEV NAME(LOC) 5S.2; GLUCOSE,POINT OF CARE 271 MG/DL (70-110)
[2018-06-30 15:57] VITALS: BP 102/62
[2018-06-30] MEDS: CefTRIAXone 1 GM/DEXTROSE 50 ML IV SCH (17:27)
[2018-06-30] MEDS: SIMVASTATIN 20 MG TABLET PO SCH (20:00)
[2018-07-01 05:24] LABS: GLUCOMETER DEV NAME(LOC) 5S.2; GLUCOSE,POINT OF CARE 278 MG/DL (70-110)
== END 2018-06-30 20:20 | disposition home or self-care (01) | DRG 682 ==
LOC: EMS 15:37 → 5S 18:29
PROVIDERS: ADMIT Internal Medicine; ATTEND Internal Medicine
DX: N17.9 Acute kidney failure, unspecified (principal); J18.9 Pneumonia, unspecified organism; I50.23 Acute on chronic systolic (congestive) heart failure; N39.0 Urinary tract infection, site not specified; I69.351 Hemiplegia and hemiparesis following cerebral infarction affecting right dominant side; I13.0 Hypertensive heart and chronic kidney disease with heart failure and stage 1 through stage 4 chronic kidney disease, or unspecified chronic kidney disease; E11.65 Type 2 diabetes mellitus with hyperglycemia; I20.9 Angina pectoris, unspecified; J45.909 Unspecified asthma, uncomplicated; E78.00 Pure hypercholesterolemia, unspecified; E11.22 Type 2 diabetes mellitus with diabetic chronic kidney disease; E83.42 Hypomagnesemia; R29.6 Repeated falls; E87.6 Hypokalemia; N18.9 Chronic kidney disease, unspecified; Z79.4 Long term (current) use of insulin; Z79.899 Other long term (current) drug therapy; Z90.710 Acquired absence of both cervix and uterus
CPT/HCPCS: 76770; 82570; 83605; 83735; 84100; 84132; 84156; 87040; 87070; 87081; 87086; 87205; 93005; 93306; 93970; 94640; 96361; 96365; G0378; J0696; J1644; J1650; J1815; J3475; J3480; J7030; J7050; J7060

== ENCOUNTER 2022-09-13 17:41 | Inpatient (IN) | payer MEDICARE, OTHER ==
[~2022-09-13] VITALS: Ht 160 cm; Wt 119.3 kg
[~2022-09-13 17:41] MED LIST changes: +BISA-151 PO; -DULO20CA30 PO; +DULO20CA71 PO; -FERR-89 PO; +FERR325T27 PO; +FURO40 PO; +GABA-1216 PO; -GABA-529 PO; +MONT-35 PO; -MONT10TA21 PO; +POTA8TAB71 PO; -SLOWK8 PO
[2022-09-13] MEDS ORDERED: SODIUM CHLORIDE 0.9% 1,000 ML IV ONE (18:30)
[2022-09-13] MEDS ORDERED: MEMA5TAB42 PO (18:31)
[2022-09-13] MEDS ORDERED: SACU1TAB PO (18:31)
[2022-09-13] MEDS ORDERED: POTA8CAP20 PO (18:31)
[2022-09-13] MEDS ORDERED: ASPI-1444 PO (18:31)
[2022-09-13] MEDS ORDERED: MONT-40 PO (18:31)
[2022-09-13] MEDS ORDERED: EMPA25TA3 PO (18:31)
[2022-09-13] MEDS ORDERED: GABA-529 PO (18:31)
[2022-09-13] MEDS ORDERED: SIMV-46 PO (18:31)
[2022-09-13 20:17] LABS: BASOPHILS % (AUTO) 0.6 % (0.0-2.0); EOSINOPHILS % (AUTO) 1.7 % (1.0-6.0); HEMATOCRIT 46.8 % (36-46); HEMOGLOBIN 14.9 g/dL (12.0-16.0); LYMPHOCYTES # (AUTO) 2.7 K/uL (1.0-4.8); LYMPHOCYTES % (AUTO) 16.8 % (22.0-44.0); MEAN CORPUSCULAR HEMOGLOBIN 31.1 pg (26.0-34.0); MEAN CORPUSCULAR HGB CONC 31.8 G/dL (31.0-37.0); MEAN CORPUSCULAR VOLUME 98 fL (80-100); MONOCYTES # (AUTO) 0.6 K/uL (0.1-1.0); NEUTROPHILS # (AUTO) 12.2 K/uL (1.8-7.7); NEUTROPHILS % (AUTO) 76.9 % (40.0-70.0); PLATELET COUNT (AUTO) 141 K/uL (150-450); RED BLOOD CELL COUNT(AUTO) 4.79 MIL/uL (4.00-5.20); RED CELL DISTRIBUTION WIDTH 16.2 % (11.5-14.5)
[2022-09-13 20:25] LABS: CREATININE 1.83 mg/dL (0.60-1.30); POTASSIUM 3.3 mmol/L (3.5-5.1)
[2022-09-13 20:29] LABS: APPEARANCE,URINE CLEAR (CLEAR); BILIRUBIN,URINE NEGATIVE (NEGATIVE); GLUCOSE, URINE (UA) >=1000 mg/dL (NEGATIVE); KETONES,URINE NEGATIVE (NEGATIVE); LEUKOCYTE ESTERASE ,URINE NEGATIVE (NEGATIVE); NITRATE,URINE NEGATIVE (NEGATIVE); OCCULT BLOOD,URINE TRACE (NEGATIVE); PROTEIN,URINE 30-70 mg/dL (NEGATIVE); SPECIFIC GRAVITIY, URINE 1.028 (1.003-1.030); UROBILINOGEN,URINE <=1.0 mg/dL (<=1.0)
[2022-09-13] MEDS: CefTRIAXone 1 GM/DEXTROSE 50 ML IV ONE ×2 (20:30→20:45)
[2022-09-13 20:32] LABS: BILIRUBIN,TOTAL 0.4 mg/dL (0.1-1.0); TOTAL PROTEIN, SERUM 9.9 g/dL (6.4-8.2)
[2022-09-13 20:38] LABS: BACTERIA,URINE None Seen /HPF (None Seen); RBC,URINE None Seen /HPF (0-2); SQUAMOUS EPITHELIAL CELL,UR Rare /LPF (None Seen); WBC,URINE None Seen /HPF (0-5)
[2022-09-13] MEDS: AZITHROMYCIN 500 MG/NS 250 ML IV ONE (20:51)
[2022-09-13] MEDS ORDERED: ACETAMINOPHEN 325 MG TABLET PO PRN ×2 (21:15→21:30)
[2022-09-13] MEDS ORDERED: ONDANSETRON HCL 4 MG/2 ML VIAL IVP PRN ×2 (21:15→21:30)
[2022-09-13] MEDS ORDERED: ALBUTEROL SULFATE 2.5 MG/0.5 ML NEB SOLUTION NEB PRN (21:30)
[2022-09-13] MEDS ORDERED: MORPHINE SULFATE 2 MG/ML SYRINGE IVP PRN (21:30)
[2022-09-13] MEDS ORDERED: MAGNESIUM HYDROXIDE SUSPENSION 30 ML UDCUP PO PRN (21:30)
[2022-09-13] MEDS ORDERED: BISACODYL 10 MG RECTAL RECTAL SUPPOSITORY PR PRN (21:30)
[2022-09-13] MEDS ORDERED: DEXTROSE 50%-WATER 25 GM/50 ML SYRINGE IVP PRN (21:30)
[2022-09-13] MEDS ORDERED: IPRATROPIUM BROMIDE 0.5 MG/2.5 ML NEB SOLUTION NEB PRN (21:30)
[2022-09-14] VITALS (7 sets, daily range): BP systolic 83–125; BP diastolic 41–78; PULSE 65–79; RESP 18–22; TEMP 97.1–98.3
[2022-09-14] MEDS: AZITHROMYCIN 500 MG/NS 250 ML IV ONE (02:58)
[2022-09-14] MEDS: HEPARIN SODIUM,PORCINE 5,000 UNITS/ML VIAL SQ SCH ×3 (03:15→15:44)
[2022-09-14] MEDS: HYDROCODONE/ACETAMINOPHEN 5-325 MG TABLET PO PRN ×2 (03:18→20:05)
[2022-09-14] MEDS ORDERED: SODIUM CHLORIDE 0.9% 250 ML IV ONE (04:09)
[2022-09-14] MEDS: LEVOFLOXACIN 750 MG/D5% WATER 150 ML IV SCH (05:08)
[2022-09-14 07:08] LABS: BASOPHILS % (AUTO) 0.4 % (0.0-2.0); EOSINOPHILS % (AUTO) 2.2 % (1.0-6.0); HEMATOCRIT 42.5 % (36-46); HEMOGLOBIN 13.5 g/dL (12.0-16.0); LYMPHOCYTES # (AUTO) 2.3 K/uL (1.0-4.8); LYMPHOCYTES % (AUTO) 18.2 % (22.0-44.0); MEAN CORPUSCULAR HEMOGLOBIN 30.7 pg (26.0-34.0); MEAN CORPUSCULAR HGB CONC 31.7 G/dL (31.0-37.0); MEAN CORPUSCULAR VOLUME 97 fL (80-100); MONOCYTES # (AUTO) 0.6 K/uL (0.1-1.0); MONOCYTES % (AUTO) 4.7 % (2.0-9.0); NEUTROPHILS # (AUTO) 9.5 K/uL (1.8-7.7); NEUTROPHILS % (AUTO) 74.5 % (40.0-70.0); PLATELET COUNT (AUTO) 152 K/uL (150-450); RED BLOOD CELL COUNT(AUTO) 4.39 MIL/uL (4.00-5.20); RED CELL DISTRIBUTION WIDTH 15.8 % (11.5-14.5)
[2022-09-14 07:15] LABS: CALCIUM, TOTAL 8.4 mg/dL (8.8-10.5); CREATININE 1.8 mg/dL (0.60-1.30); POTASSIUM 3.5 mmol/L (3.5-5.1)
[2022-09-14] MEDS: FERROUS SULFATE 325 MG EC TABLET PO SCH (08:45)
[2022-09-14] MEDS: DOCUSATE SODIUM 100 MG CAPSULE PO SCH ×2 (08:47→20:05)
[2022-09-14] MEDS: ASPIRIN 81 MG DR TABLET PO SCH (08:48)
[2022-09-14] MEDS: EMPAGLIFLOZIN 25 MG TABLET PO SCH (08:49)
[2022-09-14] MEDS: MEMANTINE HCL 5 MG TABLET PO SCH ×2 (08:50→21:49)
[2022-09-14] MEDS: GABAPENTIN 100 MG CAPSULE PO SCH ×3 (08:50→20:04)
[2022-09-14] MEDS: PANTOPRAZOLE SODIUM 40 MG DR TABLET PO SCH (08:50)
[2022-09-14] MEDS: MONTELUKAST SODIUM 10 MG TABLET PO SCH (08:51)
[2022-09-14] MEDS ORDERED: SACUBITRIL/VALSARTAN 24-26 MG TABLET PO SCH (09:00)
[2022-09-14 09:52] LABS: GLUCOMETER DEV NAME(LOC) 4E.2
[2022-09-14 09:52] LABS: GLUCOMETER DEV NAME(LOC) 6N.1
[2022-09-14] MEDS ORDERED: DEXTROSE 5%-WATER 250 ML IV ONE (10:15)
[2022-09-14] MEDS ORDERED: DEXTROSE 5%-WATER 1,000 ML IV ONE (10:15)
[2022-09-14] MEDS: WATER FOR INJECTION,STERILE 500 ML in DEXTROSE 5%-WATER 500 ML IV SCH (14:31)
[2022-09-14] MEDS: INSULIN LISPRO 100 UNITS/ML SQ PRN ×2 (18:50→21:02)
[2022-09-14] MEDS: SIMVASTATIN 40 MG TABLET PO SCH (20:05)
[2022-09-14] MEDS: ZOLPIDEM TARTRATE 5 MG TABLET PO PRN (21:49)
[2022-09-14 22:16] LABS: GLUCOMETER DEV NAME(LOC) 5S.2C
[2022-09-14 23:50] LABS: GLUCOMETER DEV NAME(LOC) 5N.2C
[2022-09-15] MEDS: HEPARIN SODIUM,PORCINE 5,000 UNITS/ML VIAL SQ SCH ×4 (00:08→23:23)
[2022-09-15 00:15] VITALS: BP 113/64; PULSE 64; RESP 20; TEMP 98.1
[2022-09-15] MEDS: WATER FOR INJECTION,STERILE 500 ML in DEXTROSE 5%-WATER 500 ML IV SCH (02:17)
[2022-09-15] MEDS: LEVOFLOXACIN 750 MG/D5% WATER 150 ML IV SCH (03:58)
[2022-09-15 04:55] VITALS: BP 94/54; PULSE 59; RESP 20; TEMP 98.2
[2022-09-15] MEDS: INSULIN LISPRO 100 UNITS/ML SQ PRN ×4 (06:13→20:24)
[2022-09-15 06:53] LABS: BASOPHILS % (AUTO) 0.6 % (0.0-2.0); EOSINOPHILS % (AUTO) 3.4 % (1.0-6.0); HEMATOCRIT 38.6 % (36-46); HEMOGLOBIN 12.4 g/dL (12.0-16.0); LYMPHOCYTES # (AUTO) 2.4 K/uL (1.0-4.8); LYMPHOCYTES % (AUTO) 34.1 % (22.0-44.0); MEAN CORPUSCULAR HGB CONC 32.1 G/dL (31.0-37.0); MEAN CORPUSCULAR VOLUME 97 fL (80-100); MONOCYTES # (AUTO) 0.4 K/uL (0.1-1.0); MONOCYTES % (AUTO) 6.3 % (2.0-9.0); NEUTROPHILS % (AUTO) 55.6 % (40.0-70.0); PLATELET COUNT (AUTO) 132 K/uL (150-450); RED BLOOD CELL COUNT(AUTO) 3.99 MIL/uL (4.00-5.20); RED CELL DISTRIBUTION WIDTH 15.6 % (11.5-14.5)
[2022-09-15 07:07] LABS: CALCIUM, TOTAL 8.1 mg/dL (8.8-10.5); CREATININE 1.64 mg/dL (0.60-1.30); MAGNESIUM 2.5 mg/dL (1.80-2.40); PHOSPHORUS 3.8 mg/dL (2.5-4.9); POTASSIUM 3.9 mmol/L (3.5-5.1)
[2022-09-15 08:10] VITALS: BP 94/48; PULSE 61; RESP 19; TEMP 97.6
[2022-09-15] MEDS: HYDROCODONE/ACETAMINOPHEN 5-325 MG TABLET PO PRN ×3 (08:46→18:37)
[2022-09-15] MEDS: MONTELUKAST SODIUM 10 MG TABLET PO SCH (08:46)
[2022-09-15] MEDS: ASPIRIN 81 MG DR TABLET PO SCH (08:46)
[2022-09-15] MEDS: PANTOPRAZOLE SODIUM 40 MG DR TABLET PO SCH (08:46)
[2022-09-15] MEDS: DOCUSATE SODIUM 100 MG CAPSULE PO SCH ×2 (08:46→20:23)
[2022-09-15] MEDS: GABAPENTIN 100 MG CAPSULE PO SCH ×2 (08:46→20:23)
[2022-09-15] MEDS: FERROUS SULFATE 325 MG EC TABLET PO SCH (08:47)
[2022-09-15] MEDS: EMPAGLIFLOZIN 25 MG TABLET PO SCH (08:47)
[2022-09-15] MEDS: MEMANTINE HCL 5 MG TABLET PO SCH ×2 (08:47→20:23)
[2022-09-15 09:01] LABS: GLUCOMETER DEV NAME(LOC) 5S.2C
[2022-09-15 11:56] VITALS: BP 93/77; PULSE 63; RESP 18; TEMP 98
[2022-09-15 11:56] LABS: GLUCOMETER DEV NAME(LOC) 4E.2
[2022-09-15 12:56] LABS: GLUCOMETER DEV NAME(LOC) 5N.1C
[2022-09-15] MEDS: MIDODRINE HCL 5 MG TABLET PO SCH ×2 (17:55→20:23)
[2022-09-15 18:28] LABS: GLUCOMETER DEV NAME(LOC) 5N.1C
[2022-09-15 20:00] VITALS: BP 98/63; PULSE 69; RESP 20; TEMP 98.7
[2022-09-15] MEDS: SIMVASTATIN 40 MG TABLET PO SCH (20:23)
[2022-09-15] MEDS: ZOLPIDEM TARTRATE 5 MG TABLET PO PRN (21:50)
[2022-09-16 05:04] VITALS: BP 102/48; PULSE 63; RESP 20; TEMP 98.3
[2022-09-16] MEDS: LEVOFLOXACIN 750 MG/D5% WATER 150 ML IV SCH (05:44)
[2022-09-16 06:09] LABS: GLUCOMETER DEV NAME(LOC) 5N.2C
[2022-09-16] MEDS: INSULIN LISPRO 100 UNITS/ML SQ PRN ×3 (06:30→16:39)
[2022-09-16 06:42] LABS: BASOPHILS % (AUTO) 0.4 % (0.0-2.0); EOSINOPHILS % (AUTO) 2.9 % (1.0-6.0); HEMATOCRIT 39.5 % (36-46); HEMOGLOBIN 12.6 g/dL (12.0-16.0); LYMPHOCYTES # (AUTO) 1.6 K/uL (1.0-4.8); LYMPHOCYTES % (AUTO) 24.4 % (22.0-44.0); MEAN CORPUSCULAR HEMOGLOBIN 30.3 pg (26.0-34.0); MEAN CORPUSCULAR HGB CONC 31.9 G/dL (31.0-37.0); MEAN CORPUSCULAR VOLUME 95 fL (80-100); MONOCYTES # (AUTO) 0.4 K/uL (0.1-1.0); MONOCYTES % (AUTO) 6.6 % (2.0-9.0); NEUTROPHILS # (AUTO) 4.2 K/uL (1.8-7.7); NEUTROPHILS % (AUTO) 65.7 % (40.0-70.0); PLATELET COUNT (AUTO) 171 K/uL (150-450); RED BLOOD CELL COUNT(AUTO) 4.16 MIL/uL (4.00-5.20); RED CELL DISTRIBUTION WIDTH 15.1 % (11.5-14.5)
[2022-09-16 06:49] LABS: CALCIUM, TOTAL 8.6 mg/dL (8.8-10.5); CREATININE 1.58 mg/dL (0.60-1.30); POTASSIUM 3.5 mmol/L (3.5-5.1)
[2022-09-16 07:39] VITALS: BP 102/57; PULSE 69; RESP 16; TEMP 98.7
[2022-09-16] MEDS: HEPARIN SODIUM,PORCINE 5,000 UNITS/ML VIAL SQ SCH ×2 (07:59→16:35)
[2022-09-16] MEDS: MEMANTINE HCL 5 MG TABLET PO SCH (07:59)
[2022-09-16] MEDS: FERROUS SULFATE 325 MG EC TABLET PO SCH (07:59)
[2022-09-16] MEDS: MIDODRINE HCL 5 MG TABLET PO SCH ×2 (07:59→16:35)
[2022-09-16] MEDS: HYDROCODONE/ACETAMINOPHEN 5-325 MG TABLET PO PRN ×3 (07:59→16:35)
[2022-09-16] MEDS: GABAPENTIN 100 MG CAPSULE PO SCH (07:59)
[2022-09-16] MEDS: EMPAGLIFLOZIN 25 MG TABLET PO SCH (07:59)
[2022-09-16] MEDS: MONTELUKAST SODIUM 10 MG TABLET PO SCH (07:59)
[2022-09-16] MEDS: DOCUSATE SODIUM 100 MG CAPSULE PO SCH (08:00)
[2022-09-16] MEDS: ASPIRIN 81 MG DR TABLET PO SCH (08:00)
[2022-09-16] MEDS: PANTOPRAZOLE SODIUM 40 MG DR TABLET PO SCH (08:00)
[2022-09-16] MEDS ORDERED: LEVO750T68 PO (09:29)
[2022-09-16] MEDS ORDERED: INSU100I26 SQ (09:29)
[2022-09-16] MEDS ORDERED: MIDO5TAB29 PO (09:29)
[2022-09-16 12:00] VITALS: BP 129/70; PULSE 75; RESP 18; TEMP 98.2
[2022-09-16 12:12] LABS: GLUCOMETER DEV NAME(LOC) 5S.1B
[2022-09-16 15:44] VITALS: BP 104/58; PULSE 71; RESP 18; TEMP 98.1
[2022-09-16 20:57] LABS: GLUCOMETER DEV NAME(LOC) 5S.1B
[2022-09-16 20:57] LABS: GLUCOMETER DEV NAME(LOC) 5S.1B
== END 2022-09-16 18:10 | disposition home health service (06) | DRG 871 ==
LOC: EMS 17:42 → 6S 21:55 → 5S 09-14 16:59
PROVIDERS: ADMIT Internal Medicine; ATTEND Internal Medicine
DX: A41.9 Sepsis, unspecified organism (principal); J18.1 Lobar pneumonia, unspecified organism; E87.0 Hyperosmolality and hypernatremia; N17.9 Acute kidney failure, unspecified; I13.0 Hypertensive heart and chronic kidney disease with heart failure and stage 1 through stage 4 chronic kidney disease, or unspecified chronic kidney disease; I50.22 Chronic systolic (congestive) heart failure; I69.354 Hemiplegia and hemiparesis following cerebral infarction affecting left non-dominant side; E87.6 Hypokalemia; E11.65 Type 2 diabetes mellitus with hyperglycemia; J45.909 Unspecified asthma, uncomplicated; I95.1 Orthostatic hypotension; N18.32 Chronic kidney disease, stage 3b; D35.00 Benign neoplasm of unspecified adrenal gland; E11.22 Type 2 diabetes mellitus with diabetic chronic kidney disease; E11.40 Type 2 diabetes mellitus with diabetic neuropathy, unspecified; E78.00 Pure hypercholesterolemia, unspecified; F01.50 Vascular dementia, unspecified severity, without behavioral disturbance, psychotic disturbance, mood disturbance, and anxiety; Z79.82 Long term (current) use of aspirin; Z90.710 Acquired absence of both cervix and uterus; Z91.119 Patient's noncompliance with dietary regimen due to unspecified reason; Z79.899 Other long term (current) drug therapy; Z79.4 Long term (current) use of insulin
CPT/HCPCS: 51701; 71045; 74176; 76770; 80048; 80053; 81001; 82962; 83690; 83735; 84100; 84484; 85025; 87040; 93005; 97110; 97116; 97162; 97166; 97168; 97530; 97535; 99285; J0456; J0696; J1644; J1956; J7050; J7060; Q9967; 36415-L1; 36415-TC

== ENCOUNTER 2024-08-07 07:45 | Emergency (ER) | payer MEDICARE, MEDICAID ==
[~2024-08-07] VITALS: Ht 167.6 cm; Wt 113.6 kg
[~2024-08-07 07:45] MED LIST changes: +ASPI-1444 PO; -BISA-151 PO; -DULO20CA71 PO; +EMPA25TA3 PO; -FURO40 PO; -GABA-1216 PO; +GABA-529 PO; -INSNOV SQ; -MEMA5 PO; +MEMA5TAB16 PO; -MONT-35 PO; +MONT-40 PO; -POTA8TAB71 PO; -SIMV-260 PO; +SIMV-46 PO
[2024-08-07 08:11] VITALS: TEMP 98.2
[2024-08-07 08:33] LABS: BASOPHILS % (AUTO) 0.8 % (0.0-2.0); EOSINOPHILS % (AUTO) 2.1 % (1.0-6.0); HEMATOCRIT 38.2 % (36-46); HEMOGLOBIN 12.7 g/dL (12.0-16.0); LYMPHOCYTES # (AUTO) 1.8 K/uL (1.0-4.8); LYMPHOCYTES % (AUTO) 38.5 % (22.0-44.0); MEAN CORPUSCULAR HEMOGLOBIN 31.2 pg (26.0-34.0); MEAN CORPUSCULAR HGB CONC 33.2 G/dL (31.0-37.0); MEAN CORPUSCULAR VOLUME 94 fL (80-100); MONOCYTES # (AUTO) 0.4 K/uL (0.1-1.0); MONOCYTES % (AUTO) 7.5 % (2.0-9.0); NEUTROPHILS # (AUTO) 2.4 K/uL (1.8-7.7); NEUTROPHILS % (AUTO) 51.1 % (40.0-70.0); PLATELET COUNT (AUTO) 217 K/uL (150-450); RED BLOOD CELL COUNT(AUTO) 4.07 MIL/uL (4.00-5.20); RED CELL DISTRIBUTION WIDTH 14.7 % (11.5-14.5); WHITE BLOOD COUNT (AUTO) 4.7 K/uL (4.5-11.0)
[2024-08-07 08:41] LABS: ANION GAP 10 mmol/L (8-16); CALCIUM, TOTAL 8.2 mg/dL (8.8-10.5); CARBON DIOXIDE 28 mmol/L (22-29); CHLORIDE 104 mmol/L (98-107); CREATININE 1.29 mg/dL (0.60-1.30); GLOMERULAR FILTR. RATE CALC 50 mL/min (>60); GLUCOSE,RANDOM 373 mg/dL (70-110); POTASSIUM 3.5 mmol/L (3.5-5.1); SODIUM SERUM 142 mmol/L (136-145); UREA NITROGEN, BLOOD 11 mg/dL (7-18)
[2024-08-07 08:49] LABS: TROPONIN I-HIGH SENSITIVITY 9 ng/L (<51)
[2024-08-07 10:16] LABS: APPEARANCE,URINE CLEAR (CLEAR); BILIRUBIN,URINE NEGATIVE (NEGATIVE); COLOR,URINE LIGHT YELLOW (YELLOW); GLUCOSE, URINE (UA) >=1000 mg/dL (NEGATIVE); KETONES,URINE NEGATIVE (NEGATIVE); LEUKOCYTE ESTERASE ,URINE NEGATIVE (NEGATIVE); NITRATE,URINE NEGATIVE (NEGATIVE); OCCULT BLOOD,URINE NEGATIVE (NEGATIVE); PH,URINE 5.5 (5.0-8.0); PROTEIN,URINE NEGATIVE (NEGATIVE); SPECIFIC GRAVITIY, URINE 1.024 (1.003-1.030); UROBILINOGEN,URINE <=1.0 mg/dL (<=1.0)
[2024-08-07 10:32] LABS: BACTERIA,URINE None Seen /HPF (None Seen); RBC,URINE None Seen /HPF (0-2); SQUAMOUS EPITHELIAL CELL,UR Few /LPF (None Seen); WBC,URINE None Seen /HPF (0-5)
[2024-08-07] MEDS: INSULIN GLARGINE,HUM.REC.ANLOG 100 UNITS/ML SQ ONE (11:03)
[2024-08-07 11:10] LABS: GLUCOMETER DEV NAME(LOC) ERT.7; GLUCOSE,POINT OF CARE 329 MG/DL (70-110)
[2024-08-07 11:15] VITALS: BP 117/58; PULSE 60; RESP 12; O2SAT 99
== END 2024-08-07 11:16 | disposition home or self-care (01) ==
LOC: EMS 08:08
DX: E11.65 Type 2 diabetes mellitus with hyperglycemia (principal); I11.0 Hypertensive heart disease with heart failure; I50.9 Heart failure, unspecified; R11.2 Nausea with vomiting, unspecified; E78.00 Pure hypercholesterolemia, unspecified; J45.909 Unspecified asthma, uncomplicated; F03.90 Unspecified dementia, unspecified severity, without behavioral disturbance, psychotic disturbance, mood disturbance, and anxiety; Z79.4 Long term (current) use of insulin; Z79.82 Long term (current) use of aspirin; Z86.73 Personal history of transient ischemic attack (TIA), and cerebral infarction without residual deficits; Z90.710 Acquired absence of both cervix and uterus; Z79.899 Other long term (current) drug therapy
CPT/HCPCS: 99285; 71045; 80048; 81001; 82962; 83880; 84484; 85025; 36415; 93005; J1815

== ENCOUNTER 2024-08-09 07:22 | Inpatient (IN) | payer MEDICARE, MEDICAID ==
[~2024-08-09] VITALS: Ht 162.6 cm; Wt 128.5 kg
[2024-08-09] MEDS ORDERED: INSU3INS3 SQ (07:37)
[2024-08-09] MEDS ORDERED: DULA3PEN SQ (07:37)
[2024-08-09] MEDS ORDERED: FURO40TA5 PO (07:37)
[2024-08-09] MEDS ORDERED: [UNRECOGNIZED DRUG - CODE] (07:37)
[2024-08-09] MEDS ORDERED: POTA-204 PO (07:37)
[2024-08-09 07:56] LABS: GLUCOMETER DEV NAME(LOC) ER.7; GLUCOSE,POINT OF CARE 338 MG/DL (70-110)
[2024-08-09] MEDS ORDERED: IOHEXOL 350 MG/ML 100 ML VIAL ONE (08:01)
[2024-08-09] MEDS ORDERED: SODIUM CHLORIDE 0.9% 100 ML ONE (08:01)
[2024-08-09 08:56] LABS: BASOPHILS % (AUTO) 0.7 % (0.0-2.0); EOSINOPHILS % (AUTO) 1.6 % (1.0-6.0); HEMATOCRIT 38.2 % (36-46); HEMOGLOBIN 12.4 g/dL (12.0-16.0); LYMPHOCYTES # (AUTO) 1.9 K/uL (1.0-4.8); LYMPHOCYTES % (AUTO) 34.7 % (22.0-44.0); MEAN CORPUSCULAR HGB CONC 32.4 G/dL (31.0-37.0); MEAN CORPUSCULAR VOLUME 96 fL (80-100); MONOCYTES # (AUTO) 0.4 K/uL (0.1-1.0); MONOCYTES % (AUTO) 7.2 % (2.0-9.0); NEUTROPHILS # (AUTO) 3.1 K/uL (1.8-7.7); NEUTROPHILS % (AUTO) 55.8 % (40.0-70.0); PLATELET COUNT (AUTO) 226 K/uL (150-450); RED BLOOD CELL COUNT(AUTO) 3.98 MIL/uL (4.00-5.20); WHITE BLOOD COUNT (AUTO) 5.5 K/uL (4.5-11.0)
[2024-08-09 09:05] LABS: CALCIUM, TOTAL 8.2 mg/dL (8.8-10.5); CREATININE 1.19 mg/dL (0.60-1.30); POTASSIUM 3.5 mmol/L (3.5-5.1)
[2024-08-09 09:11] LABS: ALBUMIN 2.5 g/dL (3.4-5.0); BILIRUBIN,DIRECT 0.1 mg/dL (0.00-0.20); BILIRUBIN,TOTAL 0.3 mg/dL (0.1-1.0); TOTAL PROTEIN, SERUM 7.3 g/dL (6.4-8.2)
[2024-08-09 09:13] LABS: TROPONIN I-HIGH SENSITIVITY 10 ng/L (<51)
[2024-08-09] MEDS: FAMOTIDINE 20 MG/2 ML VIAL IVP ONE (09:17)
[2024-08-09] MEDS: ACETAMINOPHEN 500 MG TABLET PO ONE (09:17)
[2024-08-09] MEDS: ONDANSETRON HCL 4 MG/2 ML VIAL IVP ONE (09:18)
[2024-08-09] MEDS: FUROSEMIDE 20 MG/2 ML VIAL IVP ONE (09:18)
[2024-08-09 09:25] LABS: COVID AG,FIA SOURCE NASAL SWAB
[2024-08-09 09:54] LABS: INFLUENZA TYPE A NEGATIVE FOR TYPE A (NEGATIVE); INFLUENZA TYPE B NEGATIVE FOR TYPE B (NEGATIVE); SARS-COV2 (COVID) ANTIGEN,FIA Negative (Negative)
[2024-08-09] MEDS ORDERED: ONDANSETRON HCL 4 MG/2 ML VIAL IVP PRN (11:00)
[2024-08-09] MEDS ORDERED: DEXTROSE 50%-WATER 25 GM/50 ML SYRINGE IVP PRN (11:00)
[2024-08-09] MEDS ORDERED: ALBUTEROL SULFATE 2.5 MG/0.5 ML NEB SOLUTION NEB PRN (11:00)
[2024-08-09] MEDS ORDERED: MAGNESIUM HYDROXIDE SUSPENSION 30 ML UDCUP PO PRN (11:00)
[2024-08-09] MEDS: INSULIN GLARGINE,HUM.REC.ANLOG 100 UNITS/ML SQ SCH (11:40)
[2024-08-09 14:42] VITALS: BP 127/57; PULSE 60; RESP 18; TEMP 97.9; O2SAT 94
[2024-08-09] MEDS: HEPARIN SODIUM,PORCINE 5,000 UNITS/ML VIAL SQ SCH (16:41)
[2024-08-09] MEDS: INSULIN LISPRO 100 UNITS/ML SQ PRN (18:06)
[2024-08-09 18:35] LABS: GLUCOMETER DEV NAME(LOC) 5N.2C; GLUCOSE,POINT OF CARE 238 MG/DL (70-110)
[2024-08-09 20:00] VITALS: BP 131/59; PULSE 62; RESP 18; TEMP 97.7; O2SAT 96
[2024-08-09] MEDS: DOCUSATE SODIUM 100 MG CAPSULE PO SCH (21:00)
[2024-08-09] MEDS: ATORVASTATIN CALCIUM 40 MG TABLET PO SCH (22:30)
[2024-08-09 23:06] LABS: GLUCOMETER DEV NAME(LOC) 5N.2C; GLUCOSE,POINT OF CARE 164 MG/DL (70-110)
[2024-08-10] VITALS: BP 141/73; PULSE 58; RESP 18; TEMP 98; O2SAT 95
[2024-08-10 04:00] VITALS: BP 126/93; PULSE 53; RESP 18; TEMP 97.8; O2SAT 96
[2024-08-10 06:15] LABS: GLUCOMETER DEV NAME(LOC) 5N.1D; GLUCOSE,POINT OF CARE 75 MG/DL (70-110)
[2024-08-10 06:35] LABS: ANION GAP 6 mmol/L (8-16); BASOPHILS % (AUTO) 1.2 % (0.0-2.0); CALCIUM, TOTAL 8.2 mg/dL (8.8-10.5); CARBON DIOXIDE 33 mmol/L (22-29); CHLORIDE 104 mmol/L (98-107); CREATININE 0.94 mg/dL (0.60-1.30); EOSINOPHILS % (AUTO) 3.2 % (1.0-6.0); GLOMERULAR FILTR. RATE CALC > 60 mL/min (>60); GLUCOSE,RANDOM 68 mg/dL (70-110); HEMATOCRIT 39.6 % (36-46); HEMOGLOBIN 13.1 g/dL (12.0-16.0); LYMPHOCYTES # (AUTO) 2.3 K/uL (1.0-4.8); LYMPHOCYTES % (AUTO) 46.3 % (22.0-44.0); MEAN CORPUSCULAR HEMOGLOBIN 31.8 pg (26.0-34.0); MEAN CORPUSCULAR VOLUME 96 fL (80-100); MONOCYTES # (AUTO) 0.3 K/uL (0.1-1.0); MONOCYTES % (AUTO) 6.5 % (2.0-9.0); NEUTROPHILS # (AUTO) 2.1 K/uL (1.8-7.7); NEUTROPHILS % (AUTO) 42.8 % (40.0-70.0); PLATELET COUNT (AUTO) 221 K/uL (150-450); RED BLOOD CELL COUNT(AUTO) 4.12 MIL/uL (4.00-5.20); SODIUM SERUM 143 mmol/L (136-145); UREA NITROGEN, BLOOD 11 mg/dL (7-18); WHITE BLOOD COUNT (AUTO) 4.9 K/uL (4.5-11.0)
[2024-08-10 06:37] LABS: POTASSIUM 2.8 mmol/L (3.5-5.1)
[2024-08-10] MEDS ORDERED: POTASSIUM CHLORIDE 20 MEQ ER TABLET PO PRN (06:45)
[2024-08-10] MEDS ORDERED: SODIUM CHLORIDE 0.9% 500 ML IV ONE (06:56)
[2024-08-10] MEDS: POTASSIUM CHL 10 MEQ/WATER 50 ML IV PRN (07:06)
[2024-08-10 07:45] VITALS: BP 123/59; PULSE 56; RESP 19; TEMP 98; O2SAT 98
[2024-08-10] MEDS: ASPIRIN 81 MG CHEWABLE TABLET PO SCH (08:35)
[2024-08-10] MEDS: FAMOTIDINE 20 MG TABLET PO SCH (08:35)
[2024-08-10 11:07] VITALS: BP 105/66; PULSE 58; RESP 19; TEMP 98.4; O2SAT 97
[2024-08-10 15:29] VITALS: BP 101/55; PULSE 59; RESP 20; TEMP 97.7; O2SAT 98
[2024-08-10] MEDS ORDERED: SODIUM CHLORIDE 0.9% 100 ML ONE (16:35)
[2024-08-10] MEDS ORDERED: 0.9% SODIUM CHLORIDE 10 ML SYRINGE IVP ONE (16:35)
[2024-08-10] MEDS ORDERED: IOHEXOL 350 MG/ML 100 ML VIAL ONE (16:35)
[2024-08-10 17:35] LABS: GLUCOMETER DEV NAME(LOC) 5N.1D; GLUCOSE,POINT OF CARE 213 MG/DL (70-110)
[2024-08-10 19:41] VITALS: BP 122/59; PULSE 64; RESP 19; TEMP 98.2; O2SAT 97
[2024-08-11] VITALS (7 sets, daily range): BP systolic 101–136; BP diastolic 50–75; PULSE 52–72; RESP 18–20; TEMP 98–98.5; O2SAT 94–97
[2024-08-11 06:20] LABS: BASOPHILS % (AUTO) 0.7 % (0.0-2.0); EOSINOPHILS % (AUTO) 1.8 % (1.0-6.0); HEMATOCRIT 39.4 % (36-46); HEMOGLOBIN 12.8 g/dL (12.0-16.0); LYMPHOCYTES # (AUTO) 1.8 K/uL (1.0-4.8); LYMPHOCYTES % (AUTO) 27.4 % (22.0-44.0); MEAN CORPUSCULAR HEMOGLOBIN 31.1 pg (26.0-34.0); MEAN CORPUSCULAR HGB CONC 32.4 G/dL (31.0-37.0); MEAN CORPUSCULAR VOLUME 96 fL (80-100); MONOCYTES # (AUTO) 0.3 K/uL (0.1-1.0); MONOCYTES % (AUTO) 4.9 % (2.0-9.0); NEUTROPHILS # (AUTO) 4.2 K/uL (1.8-7.7); NEUTROPHILS % (AUTO) 65.2 % (40.0-70.0); PLATELET COUNT (AUTO) 208 K/uL (150-450); RED CELL DISTRIBUTION WIDTH 14.7 % (11.5-14.5); WHITE BLOOD COUNT (AUTO) 6.4 K/uL (4.5-11.0)
[2024-08-11 06:42] LABS: ANION GAP 5 mmol/L (8-16); CALCIUM, TOTAL 8.1 mg/dL (8.8-10.5); CARBON DIOXIDE 31 mmol/L (22-29); CHLORIDE 101 mmol/L (98-107); CREATININE 1.02 mg/dL (0.60-1.30); GLOMERULAR FILTR. RATE CALC > 60 mL/min (>60); GLUCOSE,RANDOM 243 mg/dL (70-110); POTASSIUM 3.4 mmol/L (3.5-5.1); SODIUM SERUM 137 mmol/L (136-145); UREA NITROGEN, BLOOD 11 mg/dL (7-18)
[2024-08-11] MEDS ORDERED: SODIUM CHLORIDE 0.9% 250 ML IV ONE (11:52)
[2024-08-11 12:01] LABS: GLUCOMETER DEV NAME(LOC) 5N.2C; GLUCOSE,POINT OF CARE 340 MG/DL (70-110)
[2024-08-11 12:01] LABS: GLUCOMETER DEV NAME(LOC) 5N.2C; GLUCOSE,POINT OF CARE 251 MG/DL (70-110)
[2024-08-11] MEDS: ACETAMINOPHEN 325 MG TABLET PO PRN (20:20)
[2024-08-12 04:14] VITALS: BP 121/60; PULSE 59; RESP 18; TEMP 98.2; O2SAT 98
[2024-08-12 06:06] LABS: GLUCOMETER DEV NAME(LOC) 5N.1D; GLUCOSE,POINT OF CARE 330 MG/DL (70-110)
[2024-08-12 06:06] LABS: GLUCOMETER DEV NAME(LOC) 5N.1D; GLUCOSE,POINT OF CARE 297 MG/DL (70-110)
[2024-08-12 06:06] LABS: GLUCOMETER DEV NAME(LOC) 5N.1D; GLUCOSE,POINT OF CARE 261 MG/DL (70-110)
[2024-08-12 06:06] LABS: GLUCOMETER DEV NAME(LOC) 5N.1D; GLUCOSE,POINT OF CARE 193 MG/DL (70-110)
[2024-08-12 06:50] LABS: GLUCOMETER DEV NAME(LOC) 5N.2C; GLUCOSE,POINT OF CARE 266 MG/DL (70-110)
[2024-08-12 07:10] VITALS: BP 127/62; PULSE 61; RESP 18; TEMP 98; O2SAT 98
[2024-08-12 11:19] VITALS: BP 122/64; PULSE 58; RESP 18; TEMP 98; O2SAT 97
[2024-08-12 11:55] LABS: PROTHROMBIN TIME 9.8 SEC (9.4-11.6)
[2024-08-12] MEDS: INSULIN GLARGINE,HUM.REC.ANLOG 100 UNITS/ML SQ ONE (12:23)
[2024-08-12 12:41] LABS: GLUCOMETER DEV NAME(LOC) 5N.2C; GLUCOSE,POINT OF CARE 414 MG/DL (70-110)
[2024-08-12 15:00] VITALS: BP 121/55; PULSE 62; RESP 18; TEMP 98.1; O2SAT 98
[2024-08-12 18:40] LABS: GLUCOMETER DEV NAME(LOC) 5N.2C; GLUCOSE,POINT OF CARE 326 MG/DL (70-110)
[2024-08-12 19:59] VITALS: BP 114/40; PULSE 62; RESP 19; TEMP 98.8; O2SAT 97
[2024-08-12] MEDS: INSULIN GLARGINE,HUM.REC.ANLOG 100 UNITS/ML SQ SCH (20:09)
[2024-08-12 23:15] LABS: GLUCOMETER DEV NAME(LOC) 5N.2C; GLUCOSE,POINT OF CARE 128 MG/DL (70-110)
[2024-08-12 23:15] LABS: GLUCOMETER DEV NAME(LOC) 5N.2C; GLUCOSE,POINT OF CARE 282 MG/DL (70-110)
[2024-08-12 23:22] VITALS: BP 128/56; PULSE 54; RESP 18; TEMP 98.1; O2SAT 96
[2024-08-12] MEDS: OxyCODONE HCL/ACETAMINOPHEN 5-325 MG TABLET PO PRN (23:24)
[2024-08-13 03:44] VITALS: BP 124/55; PULSE 54; RESP 18; TEMP 97.9; O2SAT 97
[2024-08-13 07:05] LABS: GLUCOMETER DEV NAME(LOC) 5N.2C; GLUCOSE,POINT OF CARE 298 MG/DL (70-110)
[2024-08-13 07:11] VITALS: BP 103/52; PULSE 51; RESP 19; TEMP 98; O2SAT 97
[2024-08-13 12:00] VITALS: BP 137/71; PULSE 61; RESP 17; TEMP 97.9; O2SAT 94
[2024-08-13 12:11] LABS: GLUCOMETER DEV NAME(LOC) 5N.2C; GLUCOSE,POINT OF CARE 245 MG/DL (70-110)
[2024-08-13 15:42] VITALS: BP 133/54; PULSE 57; RESP 18; TEMP 98; O2SAT 96
[2024-08-13 19:10] LABS: GLUCOMETER DEV NAME(LOC) 5N.1D; GLUCOSE,POINT OF CARE 310 MG/DL (70-110)
[2024-08-13 20:21] VITALS: BP 130/59; PULSE 59; RESP 18; TEMP 98.4; O2SAT 95
[2024-08-13 22:25] LABS: GLUCOMETER DEV NAME(LOC) 5N.1D; GLUCOSE,POINT OF CARE 358 MG/DL (70-110)
[2024-08-13 23:48] VITALS: BP 115/56; PULSE 62; RESP 18; TEMP 98.3; O2SAT 96
[2024-08-14] VITALS (8 sets, daily range): BP systolic 111–128; BP diastolic 45–58; PULSE 53–66; RESP 18–19; TEMP 97.9–98.8; O2SAT 92–98
[2024-08-14 06:56] LABS: GLUCOMETER DEV NAME(LOC) 5N.1D; GLUCOSE,POINT OF CARE 221 MG/DL (70-110)
[2024-08-14 12:06] LABS: GLUCOMETER DEV NAME(LOC) 5N.1D; GLUCOSE,POINT OF CARE 272 MG/DL (70-110)
[2024-08-15] VITALS (7 sets, daily range): BP systolic 106–118; BP diastolic 44–53; PULSE 57–68; RESP 17–19; TEMP 98.2–98.4; O2SAT 17–97
[2024-08-15 04:01] LABS: GLUCOMETER DEV NAME(LOC) 5N.1D; GLUCOSE,POINT OF CARE 309 MG/DL (70-110)
[2024-08-15 04:01] LABS: GLUCOMETER DEV NAME(LOC) 5N.1D; GLUCOSE,POINT OF CARE 397 MG/DL (70-110)
[2024-08-15 06:05] LABS: GLUCOMETER DEV NAME(LOC) 5N.2C; GLUCOSE,POINT OF CARE 244 MG/DL (70-110)
[2024-08-15 06:06] LABS: BASOPHILS % (AUTO) 1.1 % (0.0-2.0); EOSINOPHILS % (AUTO) 2.8 % (1.0-6.0); HEMATOCRIT 39.1 % (36-46); HEMOGLOBIN 12.8 g/dL (12.0-16.0); LYMPHOCYTES # (AUTO) 2.3 K/uL (1.0-4.8); LYMPHOCYTES % (AUTO) 42.6 % (22.0-44.0); MEAN CORPUSCULAR HEMOGLOBIN 31.1 pg (26.0-34.0); MEAN CORPUSCULAR HGB CONC 32.7 G/dL (31.0-37.0); MEAN CORPUSCULAR VOLUME 95 fL (80-100); MONOCYTES # (AUTO) 0.3 K/uL (0.1-1.0); MONOCYTES % (AUTO) 5.8 % (2.0-9.0); NEUTROPHILS # (AUTO) 2.6 K/uL (1.8-7.7); NEUTROPHILS % (AUTO) 47.7 % (40.0-70.0); PLATELET COUNT (AUTO) 238 K/uL (150-450); RED BLOOD CELL COUNT(AUTO) 4.11 MIL/uL (4.00-5.20); RED CELL DISTRIBUTION WIDTH 14.8 % (11.5-14.5); WHITE BLOOD COUNT (AUTO) 5.5 K/uL (4.5-11.0)
[2024-08-15 06:16] LABS: ANION GAP 3 mmol/L (8-16); CALCIUM, TOTAL 8.6 mg/dL (8.8-10.5); CARBON DIOXIDE 32 mmol/L (22-29); CHLORIDE 101 mmol/L (98-107); GLOMERULAR FILTR. RATE CALC > 60 mL/min (>60); GLUCOSE,RANDOM 241 mg/dL (70-110); POTASSIUM 3.7 mmol/L (3.5-5.1); SODIUM SERUM 136 mmol/L (136-145); UREA NITROGEN, BLOOD 11 mg/dL (7-18)
[2024-08-15 12:46] LABS: GLUCOMETER DEV NAME(LOC) 5N.1D; GLUCOSE,POINT OF CARE 372 MG/DL (70-110)
[2024-08-15 20:16] LABS: GLUCOMETER DEV NAME(LOC) 5N.1D; GLUCOSE,POINT OF CARE 261 MG/DL (70-110)
[2024-08-15 21:00] LABS: GLUCOMETER DEV NAME(LOC) 5N.2C; GLUCOSE,POINT OF CARE 283 MG/DL (70-110)
[2024-08-16 03:37] VITALS: BP 119/50; PULSE 56; RESP 17; TEMP 97.7; O2SAT 94
[2024-08-16 05:53] LABS: BASOPHILS % (AUTO) 0.9 % (0.0-2.0); EOSINOPHILS % (AUTO) 2.7 % (1.0-6.0); HEMATOCRIT 38.2 % (36-46); HEMOGLOBIN 12.8 g/dL (12.0-16.0); LYMPHOCYTES # (AUTO) 2.6 K/uL (1.0-4.8); LYMPHOCYTES % (AUTO) 39.4 % (22.0-44.0); MEAN CORPUSCULAR HEMOGLOBIN 31.8 pg (26.0-34.0); MEAN CORPUSCULAR HGB CONC 33.5 G/dL (31.0-37.0); MEAN CORPUSCULAR VOLUME 95 fL (80-100); MONOCYTES # (AUTO) 0.4 K/uL (0.1-1.0); MONOCYTES % (AUTO) 6.2 % (2.0-9.0); NEUTROPHILS # (AUTO) 3.4 K/uL (1.8-7.7); NEUTROPHILS % (AUTO) 50.8 % (40.0-70.0); PLATELET COUNT (AUTO) 225 K/uL (150-450); RED BLOOD CELL COUNT(AUTO) 4.03 MIL/uL (4.00-5.20); RED CELL DISTRIBUTION WIDTH 14.8 % (11.5-14.5); WHITE BLOOD COUNT (AUTO) 6.7 K/uL (4.5-11.0)
[2024-08-16 06:06] LABS: CALCIUM, TOTAL 8.5 mg/dL (8.8-10.5); CREATININE 1.16 mg/dL (0.60-1.30); POTASSIUM 3.7 mmol/L (3.5-5.1)
[2024-08-16 07:53] VITALS: BP 114/50; PULSE 60; RESP 18; TEMP 98; O2SAT 98
[2024-08-16 08:20] LABS: GLUCOMETER DEV NAME(LOC) 5N.1D; GLUCOSE,POINT OF CARE 276 MG/DL (70-110)
[2024-08-16 10:10] LABS: GLUCOMETER DEV NAME(LOC) 5N.1D; GLUCOSE,POINT OF CARE 231 MG/DL (70-110)
[2024-08-16 11:34] VITALS: BP 127/76; PULSE 70; RESP 18; TEMP 98; O2SAT 98
[2024-08-16 15:33] VITALS: BP 132/59; PULSE 68; RESP 18; TEMP 98.1; O2SAT 98
[2024-08-16 16:05] LABS: GLUCOMETER DEV NAME(LOC) 5S.2D; GLUCOSE,POINT OF CARE 306 MG/DL (70-110)
[2024-08-16 18:36] LABS: GLUCOMETER DEV NAME(LOC) 5N.1D; GLUCOSE,POINT OF CARE 331 MG/DL (70-110)
[2024-08-16 20:01] VITALS: BP 129/60; PULSE 70; RESP 18; TEMP 98.2; O2SAT 99
[2024-08-16 23:35] VITALS: BP 109/34; PULSE 62; RESP 18; TEMP 98.2; O2SAT 99
[2024-08-17 04:55] VITALS: BP 118/47; PULSE 60; RESP 18; TEMP 98.2; O2SAT 98
[2024-08-17 08:30] VITALS: BP 121/56; PULSE 59; RESP 19; TEMP 98.4; O2SAT 98
[2024-08-17 10:40] LABS: GLUCOMETER DEV NAME(LOC) 5N.1D; GLUCOSE,POINT OF CARE 298 MG/DL (70-110)
[2024-08-17 10:40] LABS: GLUCOMETER DEV NAME(LOC) 5N.1D; GLUCOSE,POINT OF CARE 222 MG/DL (70-110)
[2024-08-17 10:41] LABS: GLUCOMETER DEV NAME(LOC) 5N.1D; GLUCOSE,POINT OF CARE 160 MG/DL (70-110)
[2024-08-17 12:25] LABS: GLUCOMETER DEV NAME(LOC) 5N.1D; GLUCOSE,POINT OF CARE 190 MG/DL (70-110)
[2024-08-17 16:23] VITALS: BP 109/51; PULSE 63; RESP 20; TEMP 98.4; O2SAT 94
[2024-08-17 18:51] LABS: GLUCOMETER DEV NAME(LOC) 5N.2C; GLUCOSE,POINT OF CARE 275 MG/DL (70-110)
[2024-08-17 21:31] VITALS: BP 112/42; PULSE 65; RESP 19; TEMP 99; O2SAT 93
[2024-08-18] VITALS: BP 123/48; PULSE 62; RESP 18; TEMP 98.5; O2SAT 97
[2024-08-18 04:20] VITALS: BP 112/53; PULSE 57; RESP 17; TEMP 97.9; O2SAT 94
[2024-08-18 05:16] LABS: GLUCOMETER DEV NAME(LOC) 5N.2C; GLUCOSE,POINT OF CARE 267 MG/DL (70-110)
[2024-08-18 08:09] VITALS: BP 104/49; PULSE 58; RESP 19; TEMP 98.1; O2SAT 95
[2024-08-18 09:06] LABS: GLUCOMETER DEV NAME(LOC) 5N.1D; GLUCOSE,POINT OF CARE 296 MG/DL (70-110)
[2024-08-18 11:20] VITALS: BP 110/56; PULSE 60; RESP 19; TEMP 97.8; O2SAT 96
[2024-08-18 15:46] VITALS: BP 113/54; PULSE 58; RESP 18; TEMP 98; O2SAT 96
[2024-08-18 20:00] VITALS: BP 114/58; PULSE 75; RESP 18; TEMP 98.4; O2SAT 100
[2024-08-18 22:55] LABS: GLUCOMETER DEV NAME(LOC) 5N.2C; GLUCOSE,POINT OF CARE 397 MG/DL (70-110)
== END 2024-08-18 23:07 | DRG 638 ==
LOC: EMS 07:27 → EDH 10:57 → 5S 14:33
PROVIDERS: ADMIT Internal Medicine; ATTEND Internal Medicine
PROC: B54NZZA Ultrasonography of Left Upper Extremity Veins, Guidance (ICD-10-PCS; 2024-08-10)
PROC: 05HC33Z Insertion of Infusion Device into Left Basilic Vein, Percutaneous Approach (ICD-10-PCS; 2024-08-10)
PROC: 0BBJ3ZX Excision of Left Lower Lung Lobe, Percutaneous Approach, Diagnostic (ICD-10-PCS; principal; 2024-08-17)
DX: E11.65 Type 2 diabetes mellitus with hyperglycemia (principal); E46 Unspecified protein-calorie malnutrition; I50.22 Chronic systolic (congestive) heart failure; Z68.42 Body mass index [BMI] 45.0-49.9, adult; I69.354 Hemiplegia and hemiparesis following cerebral infarction affecting left non-dominant side; R10.84 Generalized abdominal pain; R91.8 Other nonspecific abnormal finding of lung field; E66.01 Morbid (severe) obesity due to excess calories; R10.816 Epigastric abdominal tenderness; I11.0 Hypertensive heart disease with heart failure; E78.00 Pure hypercholesterolemia, unspecified; Z20.822 Contact with and (suspected) exposure to COVID-19; F03.90 Unspecified dementia, unspecified severity, without behavioral disturbance, psychotic disturbance, mood disturbance, and anxiety; Z79.4 Long term (current) use of insulin; Z90.710 Acquired absence of both cervix and uterus; Z79.899 Other long term (current) drug therapy; Z79.82 Long term (current) use of aspirin
CPT/HCPCS: 36245; 36569; 71045; 71260; 74177; 76937; 76942; 80048; 80076; 82962; 83690; 83880; 84132; 84484; 85025; 85610; 87804; 88305; 88342; 93005; 93970; 96374; 96375; 97116; 97162; 99285; J1644; J1815; J1940; J2405; J3480; J3490; J7040; J7050; 36415-L1; 36415-TC